=== PATIENT | male | born 1950 | race Caucasian/White ===

== ENCOUNTER 2017-03-29 13:31 | Outpatient (CLI) | payer MEDICARE, OTHER ==
--- NOTE | 2017-03-29 17:06 | MRI Report ---
EXAM: MRI LUMBAR SPINE WITHOUT CONTRAST EXAM DATE: 03/29/2017 02:16 PM. CLINICAL HISTORY: Lumbar pain. Intermittent pain to left leg. Patient reports a herniated disk at L4- L5. COMPARISON: None. TECHNIQUE: Multiplanar, multisequence T1-weighted and fluid-sensitive sequences of the lumbar spine f rom T12 to S1 without contrast. Other: None. FINDINGS: Spinal Cord: The conus terminates at approximately L1. The conus medullaris and cauda equina are not well evaluated secondary to lack of CSF signal throughout the majority of the lumbar spinal canal. Alignment: Lumbar curvature convex right. 2 mm posterior subluxation L1 on L2. 3-4 mm posterior sublu xation L2 on L3. 2 mm posterior subluxation L4 on L5. Bone Marrow: Diskogenic endplate edema most pronounced on the left at L3-L4. Less pronounced at the T 12-L1 level. Fatty endplate changes most pronounced at L2-L3 and L5-S1. No acute fracture identified. Disk Levels/Facets: There is a combination of short pedicles throughout the lumbar spine, as well as prominence of epidur al fat. These factors result in severe canal stenosis from the L1-L2 level through L4-L5. Essentially no CSF signal within the lumbar spinal canal between L1-L2 and L4-L5. T12-L1: Severe disk height loss. Annular disk bulge and degenerative facet arthropathy. Moderate cent ral canal stenosis. Mild left and moderate right foraminal stenosis. L1-L2: Retrolisthesis. Annular disk bulge and moderate degenerative facet arthropathy, as well as pro minence of posterior epidural fat. Severe central canal stenosis and mild bilateral foraminal stenosi s. L2-L3: Severe disk height loss. Retrolisthesis. Severe left and mild right degenerative facet arthrop athy. These changes in combination with prominent posterior epidural fat result in severe central can al stenosis, severe left foraminal stenosis, and mild right foraminal stenosis. L3-L4: Annular disk bulge and severe degenerative facet arthropathy with ligamentum flavum buckling. These changes result in severe central canal stenosis regardless of epidural fat at this level. Sever e left and moderate right foraminal stenosis. L4-L5: Disk height loss. Annular disk bulge with broad-based central disk protrusion and moderate deg enerative facet arthropathy with ligamentum flavum buckling. These changes in combination with promin ent epidural fat result in severe central canal stenosis. Mild left greater than right foraminal sten osis. L5-S1: Disk height loss. Annular disk bulge with broad-based central protrusion. Severe right and mod erate left degenerative facet arthropathy. Mild central canal stenosis. Moderate bilateral foraminal stenosis. Musculature: Unremarkable. Other: The partially visualized retroperitoneum is unremarkable. IMPRESSION: 1. Severe multilevel lumbar degenerative disk and facet arthropathy. 2. Multilevel mild degenerative subluxations. 3. Combination of short lumbar pedicles and prominent epidural fat contribute to severe central canal stenosis with lack of CSF signal from L1-L2 through L4-L5. 4. Severe central canal stenosis at the L3-L4 level is on the basis of disk and facet arthropathy reg ardless of the epidural fat component. 5. Multilevel foraminal stenosis, severe on the left at the L2-L3 and L3-L4 levels. Comment: The following findings are so common in adults without low back pain that while we report th eir presence, they must be interpreted with caution and in the context of the clinical situation. (Re darcy Gardner et al, Spine 2001) Prevalence of findings in patients without low back pain: Disk degeneration (any evidence): 92% Disk desiccation/T2 signal loss: 83% Disk height loss: 56% Disk bulge: 64% Disk protrusion: 32% Annular tear/high intensity zone: 38% [facility] Referring Provider Line: [phone] SITE ID: [id number]
== END 2017-03-29 13:32 | disposition home or self-care (01) ==
LOC: DI 13:31
PROVIDERS: ATTEND Family Medicine
DX: M47.896 Other spondylosis, lumbar region (principal); M51.36 Other intervertebral disc degeneration, lumbar region; M51.26 Other intervertebral disc displacement, lumbar region; M51.27 Other intervertebral disc displacement, lumbosacral region; M43.16 Spondylolisthesis, lumbar region
CPT/HCPCS: 72148

== ENCOUNTER 2018-11-16 15:35 | Outpatient (CLI) | payer MEDICARE, OTHER ==
--- NOTE | 2018-11-19 09:01 | Ultrasound Report ---
Reason: PERIPHERAL VASCULAR DISEASE, UNSPECIFIED Procedure Date: 11/16/2018 Accession Number: [id number] / [id number] Procedure: US - Duplex Lwr Ext Arterial Bilat CPT Code: FULL RESULT: EXAM: Bilateral Lower Extremity Arterial Doppler Ultrasound EXAM DATE: 11/16/2018 04:46 PM. CLINICAL HISTORY: Peripheral vascular disease, unspecified. COMPARISON: None. TECHNIQUE: Real-time sonographic vascular imaging was performed by the grip boss, utilizing color-flow, Doppler flow, and spectral analysis. Multiple payable representative static images were saved for review. FINDINGS: Mild to moderate diffuse bilateral plaque visualized. Approximately 3 cm occluded segment at the distal right SFA. Collateral vessel noted. Monophasic flow through most of the left lower extremity. Correlate for inflow disease at the iliac level. Right Lower Extremity: POND SAWYER: PSV 117 cm/sec, biphasic waveform PSFA: PSV 80 cm/sec, triphasic waveform MSFA: PSV 58 cm/sec, monophasic waveform DSFA: PSV 39 cm/sec, monophasic waveform PFA: PSV 147 cm/sec, biphasic waveform POP: PSV 49 cm/sec, monophasic waveform DENISE: PSV 30 cm/sec, monophasic waveform MANAGER KNOWLEDGE: PSV 45 cm/sec, monophasic waveform SEBASTIAN: PSV 18 cm/sec, monophasic waveform DPA: PSV 10 cm/sec, monophasic waveform Left Lower Extremity: POND SAWYER: PSV 132 cm/sec, monophasic waveform PSFA: PSV 61 cm/sec, monophasic waveform MSFA: PSV 83 cm/sec, monophasic waveform DSFA: PSV 50 cm/sec, monophasic waveform PFA: PSV 45 cm/sec, biphasic waveform POP: PSV 45 cm/sec, monophasic waveform DENISE: PSV 22 cm/sec, monophasic waveform MANAGER KNOWLEDGE: PSV 39 cm/sec, monophasic waveform SEBASTIAN: PSV 33 cm/sec, monophasic waveform DPA: PSV 6 cm/sec, monophasic waveform IMPRESSION: Mild to moderate diffuse bilateral plaque visualized. Approximately 3 cm occluded segment at the distal right SFA. Collateral vessel noted. Monophasic flow through most of the left lower extremity. Correlate for inflow disease at the iliac level. [facility]
--- NOTE | 2018-11-20 06:27 | MRI Report ---
Reason: r/o tendon rupture Procedure Date: 11/16/2018 Accession Number: [id number] / [id number] Procedure: MRI - Finger(s) RT W/O CPT Code: 96131 FULL RESULT: EXAM: RIGHT HAND THIRD DIGIT MR WITHOUT CONTRAST EXAM DATE: 11/16/2018 05:57 PM. CLINICAL HISTORY: R/o tendon rupture. COMPARISON: None. TECHNIQUE: Multiplanar, multisequence T1-weighted and fluid-sensitive sequences of the finger without contrast. Other: None. FINDINGS: Bones: No fractures or subluxations. No marrow edema. No bone lesions. Cartilage: The articular cartilage is unremarkable. Ligaments: The radial and ulnar collateral ligaments are intact. Tendons: The central slip of the extensor digitorum communis tendon appears to be intact and insert normally at the base of the middle phalanx. There is soft tissue edema at the dorsal aspect of the distal interphalangeal joint, with non-visualization of the conjoined tendons and terminal tendon at the insertion on the dorsal base of the distal phalanx. The flexor tendon is normal. The flexor pulleys are intact. Musculature: No edema or fatty atrophy. Other: No joint effusions or capsular rupture. The subcutaneous tissues are unremarkable. IMPRESSION: 1. Rupture of the conjoined tendon components and terminal tendon of the extensor digitorum communis at the level of the insertion on the distal phalanx, with surrounding soft tissue edema. The central slip and lateral bands of the extensor digitorum communis are intact. [facility]
== END 2018-11-16 15:36 | disposition home or self-care (01) ==
LOC: DI 15:35
PROVIDERS: ATTEND Family Medicine
DX: S66.312A Strain of extensor muscle, fascia and tendon of right middle finger at wrist and hand level, initial encounter (principal); I73.9 Peripheral vascular disease, unspecified; I77.1 Stricture of artery
CPT/HCPCS: 93925

== ENCOUNTER 2020-03-04 15:21 | Outpatient (CLI) | payer MEDICARE, OTHER ==
--- NOTE | 2020-03-04 16:52 | MRI Report ---
PROCEDURE: Lumbar Spine W/O INDICATIONS: LOW BACK PAIN TECHNIQUE: Noncontrast sagittal T1 spin echo and T2 fast echo, sagittal STIR, axial T1 and T2 fast spin echo thr ough the lumbar spine. In cases with scoliosis, additional coronal T2 fast spin echo may be performe d. COMPARISON: 03/29/2017 FINDINGS: Image quality: Diagnostic, with note made of motion artifact. Alignment and Curvature: There is moderate dextroconvex lumbar scoliosis. There is mild retrolisthes is seen at L1-L2 and L2-L3, with minimal retrolisthesis seen at L4-L5. Bone Marrow: Marrow is of normal overall signal. Scattered foci of T1-weighted hyperintensity and T2-weighted hyperintensity are seen, without increased STIR signal. These foci are attributed to gil gn vertebral body hemangiomas. No acute vertebral body compression fractures. Spinal Cord: Conus medullaris terminates at the L1 level. Visualized cord demonstrates normal signa l and size. Paraspinous Soft Tissues: No paravertebral masses. T10-T11: Moderate to severe loss of disc height is seen. Reactive marrow endplate changes are seen, w hich demonstrate mixed signal and are attributed to a combination of edema and fatty metaplasia (Anita c type I and Modic type II changes). At least moderate disc bulge is seen, which is eccentric to the right. Moderate to severe central canal narrowing is seen. Moderate to severe bilateral neuroforamin al narrowing can be seen. T11-T12: Moderate loss of disc height and signal are seen. Moderate disc bulge is seen, which is ec centric to the right. Mild facet hypertrophy is seen. There is moderate right-sided and minimal lef t-sided neuroforaminal narrowing seen. Mild central canal narrowing is seen. T12-L1: Moderate loss of disc height and signal are seen. Moderate disc bulge is seen, which is ecce ntric to the right. Mild to moderate facet hypertrophy is seen. There is at least moderate left-sided and moderate to severe right-sided neuroforaminal narrowing seen. Compression is seen upon the exiti ng nerve roots. At least moderate central canal narrowing is seen. L1-L2: Moderate loss of disc height and signal are seen. Moderate disc bulge is seen, which is e ccentric to the right. At least moderate facet hypertrophy is seen. There is moderate to severe bilat eral neural narrowing seen, left worse than right. Compression is seen upon the exiting nerve roots. Moderate to severe central canal narrowing is seen, as on series 701 image 32. L2-L3: Moderate to severe loss of disc height and disc signal can be seen. Reactive marrow endpla te changes are seen, which are hyperintense on T1-weighted and T2-weighted imaging, without significa nt increased STIR signal. These imaging findings are most consistent with fatty metaplasia (Modic typ e 2 change). Moderate to prominent disc bulge is seen, with a central disc protrusion. There is mode rate right-sided and moderate to severe left-sided facet hypertrophy seen. There is at least moderate right-sided and moderate to severe left-sided neuroforaminal narrowing seen. Compression is seen upo n the exiting nerve roots. Moderate to severe central canal narrowing is seen, as on series 7 and on image 25. L3-L4: Moderate loss of disc height and signal are seen. Reactive marrow endplate changes are seen, which demonstrate mixed signal and are attributed to a combination of edema and fatty metaplasia (Mo dic type I and Modic type II changes). At least moderate disc bulge is seen, which is eccentric to the left. There is a central disc extrusion seen. Moderate to prominent facet hypertrophy is seen, wh ich is more prominent on the left side than on the right. Moderate to severe bilateral neuroforaminal narrowing is seen, left worse than right. Compression is seen upon the exiting nerve roots. There is severe central canal narrowing, as on series 701 image 20. L4-L5: Moderate loss of disc height and signal are seen. Moderate disc bulge is seen, with a centra l disc extrusion. Moderate to prominent facet hypertrophy is seen, right worse than left. There is mo derate to severe bilateral neuroforaminal narrowing seen, left worse than right. Compression is seen upon the exiting nerve roots. Moderate to severe central canal narrowing is seen, as on series 7 an d one image 13. L5-S1: Mild to moderate loss of disc height and disc signal can be seen. Moderate disc bulge is see n, with a central disc protrusion. There is moderate to prominent right-sided and moderate left-sided facet hypertrophy seen. There is moderate to severe bilateral neuroforaminal narrowing seen, right w orse than left. Compression is seen upon the exiting nerve roots. At least moderate central canal n arrowing is seen. IMPRESSION: Multiple levels of prominent lumbar spine degenerative change are seen, which are overal l worst at L3-L4 and L4-L5. Reviewed by: Jaspal Eason MD on 03/04/2020 3:51 PM [facility] Approved by: Jaspal Eason MD on 03/04/2020 3:51 PM [facility] Station ID: [id number]
== END 2020-03-04 15:22 | disposition home or self-care (01) ==
LOC: DI 15:21
PROVIDERS: ATTEND Student in an Organized Health Care Education/Training Program
DX: M51.26 Other intervertebral disc displacement, lumbar region (principal); M47.816 Spondylosis without myelopathy or radiculopathy, lumbar region
CPT/HCPCS: 72148

== ENCOUNTER 2024-09-11 12:59 | Inpatient (IN) ==
--- NOTE | 2024-09-11 13:13 | ED Physician Documentation ---
PD HPI NVD Stated complaint Stated Complaint: VOMITING Chief complaint Chief Complaint: Abd Pain History obtained from History obtained from: Patient History of Present Illness Timing - onset: How many days ago (3) Timing - details: Abrupt onset, Still present and Waxing and waning (Abdominal bloating and cramping vomiting that relieves for an hour or 2 and then repeated over the last 2-1/2 days.) Associated symptoms: Abdominal pain and Loss of appetite; No Fever, Hematemesis or Near syncope / syncope Contributing factors: No Sick contact Improved by: Vomiting Worsened by: Eating Similar symptoms before: Has not had sx before Meds/Allgy Home Medications Ambulatory Orders Medication Instructions Recorded Confirmed aspirin 81 mg tablet,delayed 81 mg ORAL DAILY 11/14/13 09/11/24 release (Aspir-) losartan 50 mg tablet 100 mg ORAL DAILY 11/14/13 0 09/11/24 amlodipine 10 mg tablet 10 mg PO DAILY 09/11/24 05/ 0 atorvastatin 80 mg tablet (Lipitor) 80 mg PO DAILY 09/11/24 chlorthalidone 50 mg tablet 50 mg PO DAILY 09/11/24 cholecalciferol (vitamin D3) 50 2,000 unit PO DAILY 09/11/24 mcg (2,000 unit) capsule (Vitamin D3) glucosamine sulfate 500 mg tablet 2,000 mg PO DAILY 09/11/24 (Glucosamine) metformin 500 mg tablet,extended 500 mg PO DAILY 09/1109/11/24 release 24 hr (Glucophage XR) Allergies Allergies Allergy/AdvReac Type Severity Reaction Status Date / Time No Known Drug Allergies Allergy Unverified 09/11/24 12:55 PFSH Active Problems All Active Problems (Updated 09/11/24 @ 15:08 by Boni Newby MD) RUPA (acute kidney injury) (Acute) Acute dehydration (Acute) Vomiting (Acute) SBO (small bowel obstruction) (Acute) Social History Social History If you are a former smoker, when did you quit? (Date/Year): 2005 How many cigarettes a day do you smoke? (20 cigarettes=1 Pk): 30 Relationship: Exam Exam Vital Signs: Vital Signs x48h Temp Pulse Resp BP Pulse Ox O2 Flow Rate 09/11/24 14:15 93 20 101/66 97 09/11/24 14:00 90 20 125/67 98 2 09/11/24 13:45 87 20 125/67 97 2 09/11/24 13:28 88 20 103/62 96 2 09/11/24 13:15 98 20 70/50 L 93 2 09/11/24 13:00 101 H 20 78/50 L 88 L 09/11/24 12:53 36.0 C L 100 18 92/58 L 95 Initially hypotensive on presentation which improved with IV fluids. Constitutional normal general appearance, distress noted (mild) and average body habitus HENMT oral mucous membranes abnormal (dry) Lymph no lymphadenopathy noted Respiratory breath sounds equal bilaterally and normal respiratory effort Cardiovascular normal heart rate noted and regular rhythm noted Gastrointestinal tender to palpation (moderate), (epigastric) and (RUQ), tender to percussion (moderately distended. ), abnormal bowel sounds noted (hyperactive bowel sounds) and no hernia Genitourinary no CVA tenderness Extremities no tenderness and full ROM Psychiatry mental status grossly normal Skin skin color normal Results Vitals Vitals: Vital Signs - 24 hr 09/11/24 12:53 09/11/24 12:55 09/11/24 13:00 Temperature 36.0 C L Temperature Source Temporal Artery Scan Pulse Rate 100 101 H Respiratory Rate 18 20 Blood Pressure 92/58 L 78/50 L O2 Saturation 95 88 L O2 Source Room air Room air If not protocol: Oxygen Flow, liters/minute Pain Intensity 4 4 09/11/24 13:15 09/11/24 13:28 09/11/24 13:45 Temperature Temperature Source Pulse Rate 98 88 87 Respiratory Rate 20 20 20 Blood Pressure 70/50 L 103/62 125/67 O2 Saturation 93 96 97 O2 Source Nasal cannula Nasal cannula Nasal cannula If not protocol: Oxygen Flow, liters/minute 2 2 2 Pain Intensity 09/11/24 14:00 09/11/24 14:15 Temperature Temperature Source Pulse Rate 90 93 Respiratory Rate 20 20 Blood Pressure 125/67 101/66 O2 Saturation 98 97 O2 Source Nasal cannula If not protocol: Oxygen Flow, liters/minute 2 Pain Intensity Oxygen O2 Source Nasal cannula Labs Labs: Laboratory Tests 09/11/24 09/11/24 13:20 14:17 WBC 11.5 H RBC 4.74 Hgb 14.3 Hct 42.5 MCV 89.7 MCH 30.2 MCHC 33.6 RDW 14.3 Plt Count 277 MPV 10.2 Neut # (Auto) 9.4 H Lymph # (Auto) 1.0 L [place] # (Auto) 1.0 Eos # (Auto) 0.0 Baso # (Auto) 0.0 Absolute Nucleated RBC 0.00 Nucleated RBC % 0.0 Sodium 136 Potassium 3.4 L Chloride 96 L Carbon Dioxide 24 Anion Gap 16.0 H BUN 52 H Creatinine 2.8 H Estimated GFR (MDRD) 22 L Glucose 151 H Calcium 9.2 Magnesium 1.9 Total Bilirubin 1.0 AST 19 ALT 15 Alkaline Phosphatase 55 Total Protein 7.7 Albumin 4.4 Globulin 3.3 Albumin/Globulin Ratio 1.3 Lipase 23 Urine Color DARK YELLOW Urine Clarity CLEAR Urine pH 5.5 Ur Specific [place] >=1.030 H Urine Protein 30 H Urine Glucose (UA) NEGATIVE Urine Ketones TRACE Urine Occult Blood NEGATIVE Urine Nitrite NEGATIVE Urine Bilirubin SMALL H Urine Urobilinogen 0.2 (NORMAL) Ur Leukocyte Esterase NEGATIVE Urine RBC 0-5 Urine WBC 4-5 Ur Squamous Epith Cells RARE Squamous Urine Bacteria Few Urine Casts 11-25 Hyaline Casts Ur Microscopic Review INDICATED Urine Culture Comments NOT INDICATED Rads (name of study) abd/pelvic CT: Relevant Findings:: Final report received and EMP independent interpretation of test (apparent SBO) Interpretation: FINDINGS: Image quality: Diagnostic Lower chest: Mild right lung base opacities and reticular changes. No pleural effusions. Background emphysema of the parenchyma. Normal heart size. Coronary calcifications. Liver: No contour deforming mass. Solid organs are not well assessed without IV contrast. Moderate hepatic steatosis Gallbladder and biliary system: Unremarkable, nondilated Pancreas: No ductal dilation Background parenchymal atrophy Spleen: Nonenlarged Adrenals: No discrete nodules Kidneys: No contour deforming solid mass There are scattered cysts. No hydronephrosis or obstructing calculus by stone. Vessels and lymph nodes: Borderline abdominal aortic aneurysm at 3 cm. Areas of irregular luminal plaque are present, not well assessed however on this noncontrast study. No pathologic lymphadenopathy by size criteria. Bowel and peritoneum: No drainable abscess or ascites. Bowel obstruction, with moderate distention of the proximal loops measuring up to 3.9 cm. Nondilated appendix. The right lower quadrant distal ileal loops are underdistended. Transition points in the lower midline abdomen. Colonic diverticulosis. No acute inflammation is seen. Body wall: Unremarkable Pelvis: Bladder is unremarkable. Prostate is unremarkable limited CT evaluation Bones: No aggressive appearing osseous abnormality. Advanced lumbosacral degenerative changes are present. Sacroiliac ankylosis. Diffuse sclerotic lesions of the vertebral bodies favored to represent Modic changes. IMPRESSION: Small bowel obstruction, with transition point in the lower midline abdomen. Colonic diverticula, no definite acute inflammation. Right lung base mild opacities, possibly infectious or inflammatory. Mild reticular changes might represent background fibrosis. There is also emphysema. Other findings above. Reviewed by: Efrem Martínez MD on 09/11/2024 2:43 PM PDT PD Medical Decision Making ED course Complexity details: reviewed results, considered differential and d/w patient ED course: The patient started on Tuesday which was 2 days ago with a intermittent abdominal bloating and cramping with nausea and vomiting. He will feel improved after vomiting for an hour or 2 and then developed the cramping and vomiting again. This has been repetitive over the last 2 and half days. Feeling generally weak and lightheaded now. No diarrhea or bloody stools. He denies hematemesis. No history of prior similar. He has not had any previous abdominal surgeries. His main cramps and pain are more upper abdomen. He has not had any upper respiratory symptoms. He denies any recent unusual foods or travel. Again no prior surgeries. The patient does have hyperactive bowel sounds with some moderate distention particularly in the upper abdomen. There is some tenderness in the upper abdomen more to the right. Consideration could be for pancreatic or gallbladder. However the pattern of it sounds more likely bowel obstruction. This would be less common without prior belly surgeries so would raise concerns for tumors or such as well. We will get a CT scan to best evaluate. His labs came back showing slightly elevated white count. Otherwise his creatinine is at 2.8 I presume that is not chronic for him as he is not aware of any kidney dysfunction. We do not have prior labs on him here. We did do the CT without contrast therefore and presume an acute process. Given IV fluids, Zofran and famotidine presuming some element of gastritis after 3 days of vomiting. Creatinine will get rechecked after few hours with some fluids. Did talk with Dr. Estrada who is on for surgery who asked that a nasogastric tube be placed. Given his age and acute presumption of renal insufficiency, asked that the patient go to the medicine service as well. I talked with the hospitalist who was in agreement and will come and see the patient. At this point the patient appears comfortable and is not having any abdominal pain at this time. His blood pressure had initially been low but has improved with IV fluids. Current blood pressure is now 101/66 with a pulse of 93. I did update the patient on the findings of his CT scan and labs and the expected course of hospitalization with nasogastric tube and surgical consultation. Discharge Plan Discharge Patient Disposition: ED Place in Observation Condition: Stable Clinical Impression: SBO (small bowel obstruction), Vomiting, Acute dehydration, RUPA (acute kidney injury) Prescriptions: No Action losartan 50 MG tablet 100 mg ORAL DAILY aspirin [Aspir-81] 81 MG tablet,delayed release (DR/EC) 81 mg ORAL DAILY glucosamine sulfate [Glucosamine] 500 mg tablet 2,000 mg PO DAILY Rx Instructions: administer with a meal cholecalciferol (vitamin D3) [Vitamin D3] 50 mcg (2,000 unit) capsule 2,000 unit PO DAILY atorvastatin [Lipitor] 80 mg tablet 80 mg PO DAILY metformin [Glucophage XR] 500 mg tablet extended release 24 hr 500 mg PO DAILY chlorthalidone 50 mg tablet 50 mg PO DAILY amlodipine 10 mg tablet 10 mg PO DAILY Print Language: Citizen [place] Stand Alone Forms: PCP List
[2024-09-11] MEDS: SODIUM CHLORIDE 0.9% 1,000 ML IV STA ×2 (13:16→13:33)
[2024-09-11] MEDS: FAMOTIDINE 20 MG/2 ML VIAL IVP STA (13:18)
[2024-09-11] MEDS: ONDANSETRON 4 MG/2 ML VIAL IVP STA (13:18)
[2024-09-11 13:25] LABS: BASOPHILS % (AUTO) 0.3 %; EOSINOPHILS % (AUTO) 0.3 %; HCT - HEMATOCRIT 42.5 % (42.0-52.0); HGB - HEMOGLOBIN 14.3 g/dL (14.0-18.0); LYMPHOCYTES % (AUTO) 8.7 %; MEAN CORPUSCULAR HEMOGLOBIN 30.2 pg (27.0-31.0); MEAN CORPUSCULAR HGB CONC 33.6 g/dL (32.0-36.0); MEAN CORPUSCULAR VOLUME 89.7 fL (80.0-94.0); MEAN PLATELET VOLUME 10.2 fL (7.4-11.4); NEUTROPHILS # (AUTO) 9.4 10^3/uL (1.5-6.6); NEUTROPHILS % (AUTO) 81.4 %; PLT - PLATELET COUNT 277 10^3/uL (130-450); RED BLOOD COUNT 4.74 10^6/uL (4.70-6.10); RED CELL DISTRIBUTION WIDTH 14.3 % (12.0-15.0); WHITE BLOOD COUNT 11.5 x10^3/uL (4.8-10.8)
[2024-09-11 13:43] LABS: MAGNESIUM 1.9 mg/dL (1.7-2.3)
[2024-09-11 13:51] LABS: ALBUMIN 4.4 g/dL (3.2-5.5); ALBUMIN/GLOBULIN RATIO 1.3 (1.0-2.2); CALCIUM 9.2 mg/dL (8.5-10.3); CREATININE 2.8 mg/dL (0.6-1.3); POTASSIUM 3.4 mmol/L (3.5-4.5); TOTAL PROTEIN 7.7 g/dL (6.4-8.9)
[2024-09-11] MEDS ORDERED: iohexoL-300 100 ML VIAL ONE (14:08)
[2024-09-11 14:24] LABS: BILIRUBIN,URINE SMALL (NEGATIVE); GLUCOSE, URINE (UA) NEGATIVE (NEGATIVE); KETONES,URINE (UA) TRACE mg/dL (NEGATIVE); LEUKOCYTE ESTERASE, URINE NEGATIVE (NEGATIVE); NITRITE,URINE NEGATIVE (NEGATIVE); OCCULT BLOOD,URINE NEGATIVE (NEGATIVE); PH,URINE 5.5 PH (5.0-7.5); PROTEIN,URINE 30 mg/dL (NEGATIVE); UROBILINOGEN,URINE 0.2 (NORMAL) E.U./dL (NORMAL)
[2024-09-11 14:29] LABS: CLARITY,URINE CLEAR (CLEAR)
[2024-09-11 14:32] LABS: BACTERIA,URINE Few /HPF (None Seen); RBC,URINE 0-5 /HPF (0-5); SQUAMOUS EPITHELIAL CELL,UR RARE Squamous (<= Few)
[2024-09-11 14:33] LABS: CASTS, URINE 11-25 Hyaline Casts /LPF
--- NOTE | 2024-09-11 14:44 | CT Report ---
PROCEDURE: CT Abdomen/Pelvis WO INDICATIONS: vomiting 3 days and RUQ abd tender. TECHNIQUE: A CT scan of the abdomen and pelvis was performed without the use of intravenous contrast. Images were recorded and evaluated at appropriate window settings. Reformats: coronal and sagittal. For radiation dose reduction, the following was used: automated exposure control, adjustment of mA and/or kV according to patient size. COMPARISON: None FINDINGS: Image quality: Diagnostic Lower chest: Mild right lung base opacities and reticular changes. No pleural effusions. Background emphysema of the parenchyma. Normal heart size. Coronary calcifications. Liver: No contour deforming mass. Solid organs are not well assessed without IV contrast. Moderate hepatic steatosis Gallbladder and biliary system: Unremarkable, nondilated Pancreas: No ductal dilation Background parenchymal atrophy Spleen: Nonenlarged Adrenals: No discrete nodules Kidneys: No contour deforming solid mass There are scattered cysts. No hydronephrosis or obstructing calculus by stone. Vessels and lymph nodes: Borderline abdominal aortic aneurysm at 3 cm. Areas of irregular luminal plaque are present, not well assessed however on this noncontrast study. No pathologic lymphadenopathy by size criteria. Bowel and peritoneum: No drainable abscess or ascites. Bowel obstruction, with moderate distention of the proximal loops measuring up to 3.9 cm. Nondilated appendix. The right lower quadrant distal ileal loops are underdistended. Transition points in the lower midline abdomen. Colonic diverticulosis. No acute inflammation is seen. Body wall: Unremarkable Pelvis: Bladder is unremarkable. Prostate is unremarkable limited CT evaluation Bones: No aggressive appearing osseous abnormality. Advanced lumbosacral degenerative changes are present. Sacroiliac ankylosis. Diffuse sclerotic lesions of the vertebral bodies favored to represent Modic changes. IMPRESSION: Small bowel obstruction, with transition point in the lower midline abdomen. Colonic diverticula, no definite acute inflammation. Right lung base mild opacities, possibly infectious or inflammatory. Mild reticular changes might represent background fibrosis. There is also emphysema. Other findings above. Reviewed by: Efrem Martínez MD on 09/11/2024 2:43 PM PDT Approved by: Efrem Martínez MD on 09/11/2024 2:43 PM PDT Station ID: [id number]
--- NOTE | 2024-09-11 15:13 | HISTORY & PHYSICAL EXAMINATION ---
Chief Complaint Chief Complaint Chief Complaint: Abdominal pain History of Present Illness Admitted From Admitted From:: Home History Obtained From Records Reviewed: EMR History obtained from: Patient Exam Limitations: None History of Present Illness HPI Comment/Other: Patient is a 74-year-old male with history of prediabetes, hypertension who presents with worsening abdominal pain, nausea, vomiting. Patient states that on Tuesday, he noticed some abdominal pain. He did feel gas buildup in his stomach, noticed some stomach distention, and then have repeated episodes of emesis. He describes the emesis as his recently digested food. No blood or bile was noted. This continued until today, when he decided to come in. He does not recall his last bowel movement. He is not passing gas at this time. He states his last colonoscopy was maybe 2 to 3 years ago, and he was told that it was normal. He has not had any abdominal surgeries. He is not on any opioid medications. Nor has he had any changes to his medications. In the ED, he was slightly hypotensive with blood pressure of 70/50, which improved with IV fluids. His oxygen saturation was 88% on room air. His respiratory rate was 20. His heart rate was 101. And he was afebrile at 96.8. Lab work was reviewedhe had a slightly elevated white blood cell count of 11.5. His potassium was mildly low at 3.4. His creatinine was elevated 2.8, there is no baseline in our system. His UA showed some protein. CT abdomen/pelvis was completedand it did show small bowel obstruction with transition point in lower midline abdomen. Colonic diverticula. Also showed right lung base mild opacities, some emphysema. He was admitted for small bowel obstruction. Emergency room did speak with general surgery as well, they are aware of the admission. Meds/Allgy Home Medications Ambulatory Orders Medication Instructions Recorded Confirmed aspirin 81 mg tablet,delayed 81 mg ORAL DAILY 11/14/13 09/11/24 release (Aspir-) amlodipine 10 mg tablet 10 mg PO DAILY 09/11/2408/24 0 atorvastatin 80 mg tablet (Lipitor) 80 mg PO DAILY 09/11/24 celecoxib 100 mg capsule mg 09/11/24 cetirizine 10 mg tablet mg 09/11/24 chlorthalidone 50 mg tablet 50 mg PO DAILY 09/11/24 cholecalciferol (vitamin D3) 50 2,000 unit PO DAILY 09/11/24 mcg (2,000 unit) capsule (Vitamin D3) glucosamine sulfate 500 mg tablet 2,000 mg PO DAILY 09/11/24 (Glucosamine) losartan 100 mg tablet mg 09/11/24 metformin 500 mg tablet,extended 500 mg PO DAILY 09/1109/11/24 release 24 hr (Glucophage XR) timolol maleate 0.5 % eye gel 09/11/24 forming solution Allergies Allergies Allergy/AdvReac Type Severity Reaction Status Date / Time No Known Drug Allergies Allergy Unverified 09/11/24 12:55 PFSH Active Problems All Active Problems (Updated 09/11/24 @ 15:56 by Kodak Baugh MD) Hypertension (Acute) Prediabetes (Acute) RUPA (acute kidney injury) (Acute) Acute dehydration (Acute) Vomiting (Acute) SBO (small bowel obstruction) (Acute) Social History Social History Smoking Status: Former smoker If you are a former smoker, when did you quit? (Date/Year): 2005 How many cigarettes a day do you smoke? (20 cigarettes=1 Pk): 30 Relationship: POLST Patient has POLST: No POLST Status: DNR Review of Systems Constitutional Reports: Weakness and Poor appetite; Denies: Fatigue, Fever, Chills or Malaise Eyes Denies: Pain, Irritation, Blurry vision, Vision loss, Diplopia or Eye discomfort Ears, nose, mouth, and throat Denies: Ear pain, Hearing loss, Tinnitus, Nose bleeds, Nasal discharge, Mouth lesions, Bleeding gums or Neck pain Cardiovascular Denies: Irregular heart rate, chest pain, palpitations, edema, Syncope or shortness of breath with exertion Respiratory Denies: Shortness of breath, Cough, Sputum production or Wheezing Gastrointestinal Reports: Abdominal pain, Nausea, Vomiting, Bloating and Belching; Denies: Abdominal distention, Heartburn, Diarrhea or Constipation Genitourinary Denies: Painful urination, Urinary frequency or Urinary urgency Musculoskeletal Denies: Back pain, Neck pain, Extremity pain, Extremity swelling or Joint pain Integumentary/Breast Denies: Rash, Itching, Dryness, Redness or Skin pain Neurological Denies: Headache, General weakness, Weakness in extremities, Numbness in extremities, Abnormal gait or Dizziness Psychiatric Denies: Depression, Anxiety, Mood swings or Panic attacks Endocrine Denies: Excessive urination, Excessive thirst or Fatigue Hematologic/Lymphatic Denies: Anemia, Easy bruising or Easy bleeding Allergic/Immunologic Denies: Hives, Tongue swelling, Facial swelling or Wheezing Exam Exam Vital Signs: Vital Signs x48h Temp Pulse Resp BP Pulse Ox O2 Flow Rate 09/11/24 14:15 93 20 101/66 97 09/11/24 14:00 90 20 125/67 98 2 09/11/24 13:45 87 20 125/67 97 2 09/11/24 13:28 88 20 103/62 96 2 09/11/24 13:15 98 20 70/50 L 93 2 09/11/24 13:00 101 H 20 78/50 L 88 L 09/11/24 12:53 96.8 F L 100 18 92/58 L 95 Constitutional normal general appearance, no apparent distress and abnormal body habitus (obese) HENMT normocephalic and head/scalp atraumatic Eyes EOMs intact bilaterally Neck/C-Spine visual inspection normal and trachea midline Chest inspection of chest normal Respiratory breath sounds equal bilaterally, normal respiratory effort, clear to auscultation bilaterally, no wheezes, no rales and no retractions Cardiovascular normal heart rate noted, regular rhythm noted, no gallop, no rub and no murmur Gastrointestinal abdomen soft to palpation, tender to palpation (mild) and (epigastric), distended (distended) and abnormal bowel sounds noted (hypoactive bowel sounds) Genitourinary no CVA tenderness and bladder normal to palpation Back/Pelvis spine normal to inspection and no thoracic spine tenderness Extremities normal to inspection, normal to palpation and no tenderness Neurology no movement abnormality noted and no focal motor deficit noted Psychiatry mental status grossly normal, oriented x3, thought process normal, cooperative and affect normal Skin skin color normal and no rash Conclusion/Plan Problem List (1) SBO (small bowel obstruction): Plan: Patient presents with 3 days of intractable nausea, vomiting, abdominal pain. CT abdomen/pelvis shows small bowel obstruction. Continue LR at 125 cc/h. Continue Zofran as needed, pain control. General Surgery consulted: Recommend NG tube placement. Appreciate further recommendations. (2) Acute dehydration: Plan: Continue IV fluids. Hypokalemia also noted likely due to GI losses. Continue replacement. (3) RUPA (acute kidney injury): Plan: Likely prerenal due to GI losses in setting of above. Continue IV fluid resuscitation. (4) Prediabetes: Plan: Hold metformin at this time. (5) Hypertension: Plan: Blood pressures are currently soft. Continue to hold antihypertensives at this time. Qualifiers: Hypertension type: unspecified Qualified Code(s): I10 - Essential (primary) hypertension Lab Results Lab results reviewed: Yes 09/11/24 13:20 09/11/24 13:20 Diagnostic Imaging Results Diagnostic Imaging Results: positive Final report reviewed Core Measures Anticipated LOS I expect patient to be DC'd or transferred within 96 hours.: Yes DVT/VTE - Prophylaxis VTE/DVT Device ordered at admit?: Yes VTE/DVT Prophylaxis med ordered at admit?: Yes Stroke - Rehab Assessment Rehab services assessment to be ordered?: Yes
--- OUTSIDE RECORDS SUMMARY | 2024-09-11 15:55 | EXTERNAL MEDICAL SUMMARY RPT | Continuity of Care Document ---
Author Organization [facility] Address [address] [address] Phone Results/Labs test date facility value unit notes Result panel 1 NUCLEATED RED BLOOD CELLS AUTO 2024-09-11 13:20 [facility] 0.0 /100wbc (missing) BASOPHILS # (AUTO) 2024-09-11 13:20 [facility] 0.0 10 3/ul (missing) EOSINOPHILS # (AUTO) 2024-09-11 13:20 [facility] 0.0 10 3/ul (missing) NRBC ABSOLUTE COUNT (AUTO) 2024-09-11 13:20 [facility] 0.00 x10 3/ul (missing) MONOCYTES # (AUTO) 2024-09-11 13:20 [facility] 1.0 10 3/ul (missing) LYMPHOCYTES # (AUTO) 2024-09-11 13:20 [facility] 1.0 10 3/ul (missing) BILIRUBIN,TOTAL 2024-09-11 13:20 [facility] 1.0 mg /dl As of October 2022 testing method has changed, this may include reference ranges. ALBUMIN/GLOBULIN RATIO 2024-09-11 13:20 [facility] 1.3 (missing) (missing) MAGNESIUM 2024-09-11 13:20 [facility] 1.9 mg/dl As of October 2022 testing method has changed, this may include reference ranges. MEAN PLATELET VOLUME 2024-09-11 13:20 [facility] 10.2 fl (missing) WHITE BLOOD COUNT 2024-09-11 13:20 [facility] 11.5 x10 3/ul (missing) SODIUM 2024-09-11 13:20 [facility] 136 mmol/l (missing) RED CELL DISTRIBUTION WIDTH 2024-09-11 13:20 [facility] 14.3 % (missing) HGB - HEMOGLOBIN 2024-09-11 13:20 [facility] 14.3 g /dl (missing) ALT ALANINE AMINOTRANSFERASE [facility]24-09-11 [facility] As of October 2022 testing method has changed, this may include reference ranges. GLUCOSE 2024-09-11 [facility] 151 mg/dl As of October 2022 testing method has changed, this may include reference ranges. ANION GAP 2024-09-11 [email or web address] 16.0 (missing ) (missing) AST ASPARTATE AMINOTRANSFERASE 2024-09-11 13[facility] iu/l As of October 2022 testing method has changed, this may include reference ranges. CREATININE 2024-09-11 13[email or web address] 2.8 mg/dl As of October 2022 testing method has changed, this may include reference ranges. GFR - MDRD 2024-09-11 13[facility] (andressa gary) Social History date description facility
[2024-09-11] MEDS: LACTATED RINGERS 1,000 ML IV STA (16:07)
--- NOTE | 2024-09-11 16:45 | XRAY Report ---
PROCEDURE: XR No-Charge 1V Abdomen INDICATIONS: NGT placement TECHNIQUE: 1 view of the abdomen were acquired. COMPARISON: None. FINDINGS: Surgical changes and devices: The tip of an NG tube projects to the distal body of the stomach.. IMPRESSION: NG tube tip projects to distal body of the stomach. Reviewed by: Laith Craft MD on 09/11/2024 4:44 PM PDT Approved by: Laith Craft MD on 09/11/2024 4:44 PM PDT Station ID: [id number]
[2024-09-11] MEDS ORDERED: ONDANSETRON ODT 4 MG TABLET TL PRN (17:01)
[2024-09-11] MEDS ORDERED: SODIUM CHLORIDE FLUSH 0.9% 10 ML SYRINGE IVP PRN (17:01)
[2024-09-11] MEDS ORDERED: ONDANSETRON 4 MG/2 ML VIAL IVP PRN (17:01)
[2024-09-11] MEDS: POTASSIUM CHLOR 10 MEQ/100 ML 10 MEQ/100 ML BAG IV ONE (17:13)
[2024-09-11] MEDS: LACTATED RINGERS 1,000 ML IV SCH (17:14)
[2024-09-11] MEDS: SODIUM CHLORIDE FLUSH 0.9% 10 ML SYRINGE IVP SCH (17:17)
[2024-09-11] MEDS: LIDOCAINE VISCOUS 2% 15 ML UDC MM STA (17:18)
--- NOTE | 2024-09-11 20:32 | CONSULTATION NOTE ---
History of Present Illness History of Present Illness HPI Comment/Other: 74yoM presented to ED with 48hours of nausea and vomiting. He had 1-2 episodes of diarrhea over the course of this time, but otherwise was not passing flatus. Denies prior similar episodes. Denies fever or other complaints. No inciting event, started around 3AM. No prior abdominal surgeries. No hernias. Reports up to date on colonoscopy done at [facility], 2-3yrs ago, normal. Feels he was distended prior to the repetitive vomiting, but now more or less at his baseline. PFS Active Problems All Active Problems (Updated 09/11/24 @ 20:26 by Alejandra Morris DO) Hypertension (Acute) Prediabetes (Acute) RUPA (acute kidney injury) (Acute) Acute dehydration (Acute) Vomiting (Acute) SBO (small bowel obstruction) (Acute) Medical History Medical History (Updated 09/11/24 @ 20:26 by Alejandra Morris DO) PVD (peripheral vascular disease) Surgical History Surgical History (Updated 09/11/24 @ 20:26 by Alejandra Morris DO) History of procedure for peripheral vascular disease (~2016) Proximal LLE stent Social History Social History (Updated 09/11/24 @ 16:20 by Kodak Baugh MD) Smoking Status: Former smoker If you are a former smoker, when did you quit? (Date/Year): 20 years ago How many cigarettes a day do you smoke? (20 cigarettes=1 Pk): 30 Relationship: Level: Independent Do you feel safe in your home environment?: Yes Suffered physical, verbal, emotional, or financial abuse?: No Substance Use: denies use POLST Patient has POLST: No POLST Status: DNR Meds/Allgy Home Medications Ambulatory Orders Medication Instructions Recorded Confirmed aspirin 81 mg tablet,delayed 81 mg ORAL DAILY 11/14/13 09/11/24 release (Aspir-) amlodipine 10 mg tablet 10 mg PO DAILY 09/11/2408/24 atorvastatin 80 mg tablet (Lipitor) 80 mg PO DAILY 09/11/24 celecoxib 100 mg capsule mg 09/11/24 cetirizine 10 mg tablet mg 09/11/24 chlorthalidone 50 mg tablet 50 mg PO DAILY 05/20/25 05 /20/25 cholecalciferol (vitamin D3) 50 2,000 unit PO DAILY 09/11/24 mcg (2,000 unit) capsule (Vitamin D3) glucosamine sulfate 500 mg tablet 2,000 mg PO DAILY 09/11/24 (Glucosamine) losartan 100 mg tablet mg 09/11/24 metformin 500 mg tablet,extended 500 mg PO DAILY 09/1109/11/24 release 24 hr (Glucophage XR) timolol maleate 0.5 % eye gel 09/11/24 forming solution Allergies Allergies Allergy/AdvReac Type Severity Reaction Status Date / Time No Known Drug Allergies Allergy Unverified 09/11/24 12:55 Results Lab Results Lab results reviewed: Yes 09/11/24 13:20 09/11/24 13:20 Other Lab Results: Lab Results x24hrs 09/11/24 09/11/24 Range/Units 14:17 13:20 WBC 11.5 H (4.8-10.8) x10^3/uL RBC 4.74 (4.70-6.10) 10^6/uL Hgb 14.3 (14.0-18.0) g/dL Hct 42.5 (42.0-52.0) % MCV 89.7 (80.0-94.0) fL MCH 30.2 (27.0-31.0) pg MCHC 33.6 (32.0-36.0) g/dL RDW 14.3 (12.0-15.0) % Plt Count 277 (130-450) 10^3/uL MPV 10.2 (7.4-11.4) fL Neut # (Auto) 9.4 H (1.5-6.6) 10^3/uL Lymph # (Auto) 1.0 L (1.5-3.5) 10^3/uL [place] # (Auto) 1.0 (0.0-1.0) 10^3/uL Eos # (Auto) 0.0 (0.0-0.7) 10^3/uL Baso # (Auto) 0.0 (0.0-0.1) 10^3/uL Absolute Nucleated RBC 0.00 x10^3/uL Nucleated RBC % 0.0 /100WBC Sodium 136 (135-145) mmol/L Potassium 3.4 L (3.5-4.5) mmol/L Chloride 96 L (101-111) mmol/L Carbon Dioxide 24 (21-32) mmol/L Anion Gap 16.0 H (6-13) BUN 52 H (6-20) mg/dL Creatinine 2.8 H (0.6-1.3) mg/dL Estimated GFR (MDRD) 22 L (>89) Glucose 151 H (74-104) mg/dL Calcium 9.2 (8.5-10.3) mg/dL Magnesium 1.9 (1.7-2.3) mg/dL Total Bilirubin 1.0 (0.2-1.0) mg/dL AST 19 (10-42) IU/L ALT 15 (10-60) IU/L Alkaline Phosphatase 55 (42-121) IU/L Total Protein 7.7 (6.4-8.9) g/dL Albumin 4.4 (3.2-5.5) g/dL Globulin 3.3 (2.1-4.2) g/dL Albumin/Globulin Ratio 1.3 (1.0-2.2) Lipase 23 (11-82) U/L Urine Color DARK YELLOW Urine Clarity CLEAR (CLEAR) Urine pH 5.5 (5.0-7.5) PH Ur Specific [place] >=1.030 H (1.002-1.030) Urine Protein 30 H (NEGATIVE) mg/dL Urine Glucose (UA) NEGATIVE (NEGATIVE) mg/dL Urine Ketones TRACE (NEGATIVE) mg/dL Urine Occult Blood NEGATIVE (NEGATIVE) Urine Nitrite NEGATIVE (NEGATIVE) Urine Bilirubin SMALL H (NEGATIVE) Urine Urobilinogen 0.2 (NORMAL) (NORMAL) E.U./dL Ur Leukocyte Esterase NEGATIVE (NEGATIVE) Urine RBC 0-5 (0-5) /HPF Urine WBC 4-5 (0-3) /HPF Ur Squamous Epith Cells RARE Squamous (<= Few) Urine Bacteria Few (None Seen) /HPF Urine Casts 11-25 Hyaline Casts /LPF Ur Microscopic Review INDICATED Urine Culture Comments NOT INDICATED Diagnostic Imaging Results Diagnostic Imaging Results: positive Read contemporaneously Diagnostic Imaging Results Comments: PROCEDURE: CT Abdomen/Pelvis WO INDICATIONS: vomiting 3 days and RUQ abd tender. TECHNIQUE: A CT scan of the abdomen and pelvis was performed without the use of intravenous contrast. Images were recorded and evaluated at appropriate window settings. Reformats: coronal and sagittal. For radiation dose reduction, the following was used: automated exposure control, adjustment of mA and/or kV according to patient size. COMPARISON: None FINDINGS: Image quality: Diagnostic Lower chest: Mild right lung base opacities and reticular changes. No pleural effusions. Background emphysema of the parenchyma. Normal heart size. Coronary calcifications. Liver: No contour deforming mass. Solid organs are not well assessed without IV contrast. Moderate hepatic steatosis Gallbladder and biliary system: Unremarkable, nondilated Pancreas: No ductal dilation Background parenchymal atrophy Spleen: Nonenlarged Adrenals: No discrete nodules Kidneys: No contour deforming solid mass There are scattered cysts. No hydronephrosis or obstructing calculus by stone. Vessels and lymph nodes: Borderline abdominal aortic aneurysm at 3 cm. Areas of irregular luminal plaque are present, not well assessed however on this noncontrast study. No pathologic lymphadenopathy by size criteria. Bowel and peritoneum: No drainable abscess or ascites. Bowel obstruction, with moderate distention of the proximal loops measuring up to 3.9 cm. Nondilated appendix. The right lower quadrant distal ileal loops are underdistended. Transition points in the lower midline abdomen. Colonic diverticulosis. No acute inflammation is seen. Body wall: Unremarkable Pelvis: Bladder is unremarkable. Prostate is unremarkable limited CT evaluation Bones: No aggressive appearing osseous abnormality. Advanced lumbosacral degenerative changes are present. Sacroiliac ankylosis. Diffuse sclerotic lesions of the vertebral bodies favored to represent Modic changes. IMPRESSION: Small bowel obstruction, with transition point in the lower midline abdomen. Colonic diverticula, no definite acute inflammation. Right lung base mild opacities, possibly infectious or inflammatory. Mild reticular changes might represent background fibrosis. There is also emphysema. Other findings above. Reviewed by: Efrem Martínez MD on 09/11/2024 2:43 PM PDT Review of Systems Status of ROS: 10 or more systems reviewed and unremarkable except as noted in history and below Exam Exam Vital Signs: Vital Signs x48h Temp Pulse Pulse Resp BP BP Pulse Ox 09/11/24 16:44 36.2 C L 98 20 110/72 98 09/11/24 16:00 86 18 111/51 L 95 09/11/24 14:15 93 20 101/66 97 09/11/24 14:00 90 20 125/67 98 09/11/24 13:45 87 20 125/67 97 05/20/25 13:28 88 20 103/62 96 09/11/24 13:15 98 20 70/50 L 93 09/11/24 13:00 101 H 20 78/50 L 88 L 09/11/24 12:53 36.0 C L 100 18 92/58 L 95 O2 Flow Rate 09/11/24 16:44 96 09/11/24 16:00 09/11/24 14:15 09/11/24 14:00 2 09/11/24 13:45 2 09/11/24 13:28 2 09/11/24 13:15 2 09/11/24 13:00 09/11/24 12:53 Constitutional normal general appearance, no apparent distress and abnormal body habitus (obese) HENMT normocephalic Neck/C-Spine visual inspection normal Respiratory normal respiratory effort Cardiovascular normal heart rate noted Gastrointestinal soft, protuberant abdomen at baseline/not distended per patient, nontender throughout Extremities normal to inspection Neurology no movement abnormality noted and GCS 15 Psychiatry mental status grossly normal and oriented x3 Skin skin color normal Conclusion/Plan Problem List (1) SBO (small bowel obstruction): Plan: 74yoM admitted with de jessica small bowel obstruction, in absence of abdominal surgical history and without hernias by exam or imaging. Also with RUPA 2/2 intractable vomiting with volume depletion. Mild leukocytosis to 11, tachycardic to 101 but hypotensive to SBP 70s in the ER - fluid responsive. CT with transition point within the ileum, positioned within lower midline abdomen. He is nontender. - NGT placed in ED - AXR confirmed NGT in stomach - NGT to LIWS - NPO with IVF Discussed with patient the concern for abdominal mass in the setting of de jessica SBO without obvious apparent etiology. Discussed that while initial treatment effort is resolution of the obstruction, the determination of underlying etiology remains important and often challenging. Discussed options of (presuming NGT decompresison relieves obstruction) clinically monitoring for recurrence, utilizing multiple imaging modalities to rule out various tumor types or pathologies, or the most definitive option of surgical exploration. He understood and quickly elected for an early definitive surgical exploration. We did discuss the risks of surgery to include possible open surgery, bowel resection, damage to surrounding structures, infection, bleeding, etc. Given that he has opted for surgical exploration, will plan for diagnostic laparoscopy tomorrow, regardless of resolution of bowel obstruction. - diagnostic laparoscopy, possible exploratory laparotomy, possible adhesiolysis, possible bowel resection. Alejandra Morris DO, FACS General Surgeon, [place] (2) Acute dehydration: (3) RUPA (acute kidney injury): Lab Results Lab results reviewed: Yes 09/11/24 13:20 09/11/24 13:20 Diagnostic Imaging Results Diagnostic Imaging Results: positive Read contemporaneously
[2024-09-11] MEDS: PHENOL THROAT SPRAY 177 ML MM PRN (20:58)
[2024-09-11] MEDS ORDERED: HEPARIN 5,000 UNIT/ML VIAL SUBQ SCH (21:00)
[2024-09-12 06:12] LABS: HCT - HEMATOCRIT 37.2 % (42.0-52.0); MEAN CORPUSCULAR HEMOGLOBIN 29.9 pg (27.0-31.0); MEAN CORPUSCULAR HGB CONC 32.3 g/dL (32.0-36.0); MEAN CORPUSCULAR VOLUME 92.8 fL (80.0-94.0); MEAN PLATELET VOLUME 9.9 fL (7.4-11.4); RED BLOOD COUNT 4.01 10^6/uL (4.70-6.10); RED CELL DISTRIBUTION WIDTH 14.3 % (12.0-15.0); WHITE BLOOD COUNT 7.5 x10^3/uL (4.8-10.8)
[2024-09-12 06:30] LABS: CREATININE 1.3 mg/dL (0.6-1.3); MAGNESIUM 1.9 mg/dL (1.7-2.3); POTASSIUM 3.4 mmol/L (3.5-4.5)
[2024-09-12] MEDS: POTASSIUM CHLOR 10 MEQ/100 ML 10 MEQ/100 ML BAG IV ONE (08:42)
--- NOTE | 2024-09-12 10:00 | PROVIDER PROGRESS NOTE ---
Subjective Prog Note Date Prog Note Date: 09/12/24 Prog Note Time: 09:58 Subjective Pt reports feeling: Improved Subjective: Patient reports improvement in symptoms without ABD pain, nausea, or vomiting. States appetite has returned. He has had a small BM last night and passed flatus multiple times. He denies history of similar episode prior to 2 days ago. He denies personal or family history of colon cancer. Last coloscopy was 2-3 years ago and normal per patient. Denies history of blood in stool. Current Medications Current Medications Current Medications: Current Medications Generic Name Dose Route Start Last Admin Trade Name Freq PRN Reason Stop Dose Admin Atorvastatin Calcium 80 mg 09/13/24 09:00 Atorvastatin 40 Mg Tablet PO DAILY MRAK Lactated Ringer's 1,000 mls @ 100 mls/hr 09/11/24 17:01 09/12/24 01:57 Lr IV 100 mls/hr .Q10H MARK Administration Ondansetron HCl 4 mg 09/11/24 17:01 Ondansetron Odt 4 Mg Tablet TL Q6HR PRN Nausea / Vomiting Ondansetron HCl 4 mg 09/11/24 17:01 Ondansetron 4 Mg/2 Ml Vial IVP Q6HR PRN Nausea / Vomiting Phenol/Menthol 2 sprays 09/11/24 20:26 09/11/24 20:58 Phenol Throat [place] 177 Ml MM 2 sprays Q2HR PRN Administration Throat Pain Sodium Chloride 10 ml 09/11/24 17:01 Sodium Chloride Flush 0.9% 10 Ml Syringe IVP PRN PRN NEEDED PER PROVIDER ORDERS Sodium Chloride 10 ml 09/11/24 17:01 09/12/24 08:42 Sodium Chloride Flush 0.9% 10 Ml Syringe IVP 10 ml 0100,0900,1700 MARK Administration Objective Vital Signs/Intake & Output Reviewed Vital Signs: Yes Vital Signs: Vital Signs x48h Temp Pulse Resp BP Pulse Ox 09/12/24 08:58 36.5 C 74 20 112/55 L 93 Intake & Output: Intake & Output 09/09/24 09/10/24 09/11/24 09/12/24 23:59 23:59 23:59 23:59 Intake Total 3605 / 3605 417 / 417 Output Total 200 / 200 300 / 300 Balance 3405 / 3405 117 / 117 Weight (kg) 126 kg Objective General Appearance: positive No acute distress and Alert; negative Anxious Eyes Bilateral: positive Normal inspection, PERRL and Conjunctivae nml ENT: positive ENT inspection nml, Pharynx nml and No signs of dehydration Neck: positive Nml inspection, Thyroid nml and No JVD Respiratory: positive Chest non-tender, No respiratory distress and Breath sounds nml Cardiovascular: positive Regular rate & rhythm, No murmur and No gallop Abdomen: positive Non-tender, Nml bowel sounds and No distention; negative Rebound Back: positive Nml inspection; negative CVA tenderness (R) or CVA tenderness (L) Skin: positive Color nml, No rash and Warm Extremities: positive Non-tender, Full ROM and No pedal edema Neurologic/Psychiatric: positive Oriented x3, CN's nml (2-12), Motor nml and Mood/affect nml Lab Results 09/12/24 05:58 09/12/24 05:58 Other Labs: Lab Results x24hrs 09/12/24 09/11/24 09/11/24 Range/Units 05:58 14:17 13:20 WBC 7.5 11.5 H (4.8-10.8) x10^3/uL RBC 4.01 L 4.74 (4.70-6.10) 10^6/uL Hgb 12.0 L 14.3 (14.0-18.0) g/dL Hct 37.2 L 42.5 (42.0-52.0) % MCV 92.8 89.7 (80.0-94.0) fL MCH 29.9 30.2 (27.0-31.0) pg MCHC 32.3 33.6 (32.0-36.0) g/dL RDW 14.3 14.3 (12.0-15.0) % Plt Count 211 277 (130-450) 10^3/uL MPV 9.9 10.2 (7.4-11.4) fL Neut # (Auto) 9.4 H (1.5-6.6) 10^3/uL Lymph # (Auto) 1.0 L (1.5-3.5) 10^3/uL Daniels # (Auto) 1.0 (0.0-1.0) 10^3/uL Eos # (Auto) 0.0 (0.0-0.7) 10^3/uL Baso # (Auto) 0.0 (0.0-0.1) 10^3/uL Absolute Nucleated RBC 0.00 x10^3/uL Nucleated RBC % 0.0 /100WBC Sodium 137 136 (135-145) mmol/L Potassium 3.4 L 3.4 L (3.5-4.5) mmol/L Chloride 104 96 L (101-111) mmol/L Carbon Dioxide 24 24 (21-32) mmol/L Anion Gap 9.0 16.0 H (6-13) BUN 43 H 52 H (6-20) mg/dL Creatinine 1.3 2.8 H (0.6-1.3) mg/dL Estimated GFR (MDRD) 54 L 22 L (>89) Glucose 99 151 H (74-104) mg/dL Calcium 8.0 L 9.2 (8.5-10.3) mg/dL Magnesium 1.9 1.9 (1.7-2.3) mg/dL Total Bilirubin 1.0 (0.2-1.0) mg/dL AST 19 (10-42) IU/L ALT 15 (10-60) IU/L Alkaline Phosphatase 55 (42-121) IU/L Total Protein 7.7 (6.4-8.9) g/dL Albumin 4.4 (3.2-5.5) g/dL Globulin 3.3 (2.1-4.2) g/dL Albumin/Globulin Ratio 1.3 (1.0-2.2) Lipase 23 (11-82) U/L Urine Color DARK YELLOW Urine Clarity CLEAR (CLEAR) Urine pH 5.5 (5.0-7.5) PH Ur Specific [place] >=1.030 H (1.002-1.030) Urine Protein 30 H (NEGATIVE) mg/dL Urine Glucose (UA) NEGATIVE (NEGATIVE) mg/dL Urine Ketones TRACE (NEGATIVE) mg/dL Urine Occult Blood NEGATIVE (NEGATIVE) Urine Nitrite NEGATIVE (NEGATIVE) Urine Bilirubin SMALL H (NEGATIVE) Urine Urobilinogen 0.2 (NORMAL) (NORMAL) E.U./dL Ur Leukocyte Esterase NEGATIVE (NEGATIVE) Urine RBC 0-5 (0-5) /HPF Urine WBC 4-5 (0-3) /HPF Ur Squamous Epith Cells RARE Squamous (<= Few) Urine Bacteria Few (None Seen) /HPF Urine Casts 11-25 Hyaline Casts /LPF Ur Microscopic Review INDICATED Urine Culture Comments NOT INDICATED Diagnostic Imaging Diagnostic Imaging Comments: Diagnostic Imaging Results Diagnostic Imaging Results: positive Read contemporaneously Diagnostic Imaging Results Comments: PROCEDURE: CT Abdomen/Pelvis WO INDICATIONS: vomiting 3 days and RUQ abd tender. TECHNIQUE: A CT scan of the abdomen and pelvis was performed without the use of intravenous contrast. Images were recorded and evaluated at appropriate window settings. Reformats: coronal and sagittal. For radiation dose reduction, the following was used: automated exposure control, adjustment of mA and/or kV according to patient size. COMPARISON: None FINDINGS: Image quality: Diagnostic Lower chest: Mild right lung base opacities and reticular changes. No pleural effusions. Background emphysema of the parenchyma. Normal heart size. Coronary calcifications. Liver: No contour deforming mass. Solid organs are not well assessed without IV contrast. Moderate hepatic steatosis Gallbladder and biliary system: Unremarkable, nondilated Pancreas: No ductal dilation Background parenchymal atrophy Spleen: Nonenlarged Adrenals: No discrete nodules Kidneys: No contour deforming solid mass There are scattered cysts. No hydronephrosis or obstructing calculus by stone. Vessels and lymph nodes: Borderline abdominal aortic aneurysm at 3 cm. Areas of irregular luminal plaque are present, not well assessed however on this noncontrast study. No pathologic lymphadenopathy by size criteria. Bowel and peritoneum: No drainable abscess or ascites. Bowel obstruction, with moderate distention of the proximal loops measuring up to 3.9 cm. Nondilated appendix. The right lower quadrant distal ileal loops are underdistended. Transition points in the lower midline abdomen. Colonic diverticulosis. No acute inflammation is seen. Body wall: Unremarkable Pelvis: Bladder is unremarkable. Prostate is unremarkable limited CT evaluation Bones: No aggressive appearing osseous abnormality. Advanced lumbosacral degenerative changes are present. Sacroiliac ankylosis. Diffuse sclerotic lesions of the vertebral bodies favored to represent Modic changes. IMPRESSION: Small bowel obstruction, with transition point in the lower midline abdomen. Colonic diverticula, no definite acute inflammation. Right lung base mild opacities, possibly infectious or inflammatory. Mild reticular changes might represent background fibrosis. There is also emphysema. Other findings above. Reviewed by: Efrem Marítnez MD on 09/11/2024 2:43 PM PDT Assessment/Plan Problem List (1) SBO (small bowel obstruction): Impression: -Resolving with small BM last night and continue flatus. No ABD pain, N/V. -Consider restarting Lipitor -Given abscence of prior ABD surgery and no apparent hernia, concerns for ABD mass. -Patient consulted with surgery to discuss observation vs exploratory laparotomy with possible adhesiolysis and bowel resection. He will proceed surgically. General surgery following. (2) Acute dehydration: Impression: -Improving on IV fluids. -Continue NPO with plans for surgery. (3) RUPA (acute kidney injury): Impression: -Improving after fluid replacement. Continue monitoring. (4) Hypertension: Impression: -Hold antihypertensives at this time as patient's blood pressure's have been soft Qualifiers: Hypertension type: unspecified Qualified Code(s): I10 - Essential (primary) hypertension (5) Prediabetes: Impression: -Continue statin. Hold metformin while inpatient.
--- NOTE | 2024-09-12 11:13 | ANESTHESIA PROCEDURE NOTE ---
Pre-Anesthesia VS, & Labs Diagnosis Surgical Diagnosis:: SBO Procedure Procedure: diagnostic laparoscopy Vitals Vital Signs: Temp Pulse Resp BP Pulse Ox O2 Flow Rate 36.5 C 74 20 112/55 L 93 96 09/12/24 08:58 09/12/24 08:58 09/12/24 08:58 09/12/24 08:58 09/12/24 08:58 09/11/24 16:44 NPO NPO: >8 hours Lab Results Current Lab Results: Laboratory Tests 09/12/24 05:58: WBC 7.5, RBC 4.01 L, Hgb 12.0 L, Hct 37.2 L, MCV 92.8, MCH 29.9, MCHC 32.3, RDW 14.3, Plt Count 211, MPV 9.9, Sodium 137, Potassium 3.4 L, Chloride 104, Carbon Dioxide 24, Anion Gap 9.0, BUN 43 H, Creatinine 1.3, E stimated GFR (MDRD) 54 L, Glucose 99, Calcium 8.0 L, Magnesium 1.9 09/11/24 13:20: WBC 11.5 H, RBC 4.74, Hgb 14.3, Hct 42.5, MCV 89.7, MCH 30.2, MCHC 33.6, RDW 14.3, Plt Count 277, MPV 10.2, Neut # (Auto) 9.4 H, Lymph # (Auto) 1.0 L, [place] # (Auto) 1.0, Eos # (Auto) 0.0, Baso # (Auto) 0.0, Absolute Nucleated RBC 0.00, Nucleated RBC % 0.0, Sodium 136, Potassium 3.4 L, Chloride 96 L, Carbon Dioxide 24, Anion Gap 16.0 H, BUN 52 H, Creatinine 2.8 H, Estimated GFR (MDRD) 22 L, Glucose 151 H, Calcium 9.2, Magnesium 1.9, Total Bilirubin 1.0, AST 19, ALT 15, Alkaline Phosphatase 55, Total Protein 7.7, Albumin 4.4, Globulin 3.3, Albumin/Globulin Ratio 1.3, Lipase 23 09/12/24 05:58 09/12/24 05:58 Meds/Allgy Home Medications Ambulatory Orders Medication Instructions Recorded Confirmed aspirin 81 mg tablet,delayed 81 mg ORAL DAILY 11/14/13 09/11/24 release (Aspir-) amlodipine 10 mg tablet 10 mg PO DAILY 09/11/24 05/2 0/ atorvastatin 80 mg tablet (Lipitor) 80 mg PO DAILY 09/11/24 celecoxib 100 mg capsule mg 09/11/24 cetirizine 10 mg tablet mg 09/11/24 chlorthalidone 50 mg tablet 50 mg PO DAILY 09/11/24 cholecalciferol (vitamin D3) 50 2,000 unit PO DAILY 09/11/24 mcg (2,000 unit) capsule (Vitamin D3) glucosamine sulfate 500 mg tablet 2,000 mg PO DAILY 09/11/24 (Glucosamine) losartan 100 mg tablet mg 09/11/24 metformin 500 mg tablet,extended 500 mg PO DAILY 09/1109/11/24 release 24 hr (Glucophage XR) timolol maleate 0.5 % eye gel 09/11/24 forming solution Allergies Allergies Allergy/AdvReac Type Severity Reaction Status Date / Time No Known Drug Allergies Allergy Unverified 09/11/24 12:55 PFSH Active Problems All Active Problems (Updated 09/11/24 @ 20:26 by Alejandra Morris DO) Hypertension (Acute) Prediabetes (Acute) RUPA (acute kidney injury) (Acute) Acute dehydration (Acute) Vomiting (Acute) SBO (small bowel obstruction) (Acute) Medical History Medical History (Updated 09/11/24 @ 20:26 by Alejandra Morris DO) PVD (peripheral vascular disease) Surgical History Surgical History (Updated 09/11/24 @ 20:26 by Alejandra Morris DO) History of procedure for peripheral vascular disease (~2017) Proximal LLE stent Social History Social History (Updated 09/12/24 @ 11:10 by Kendy James CRNA) Smoking Status: Former smoker If you are a former smoker, when did you quit? (Date/Year): 20 years ago How many cigarettes a day do you smoke? (20 cigarettes=1 Pk): 30 Relationship: Level: Independent Do you feel safe in your home environment?: Yes Suffered physical, verbal, emotional, or financial abuse?: No ETOH Use: Beer Frequency: Daily Number of Amount/day: 3 ETOH Use Details: pt reports drinking at minimum 21x/week Substance Use: denies use POLST Patient has POLST: No POLST Status: DNR Anesthesia Exam (Expanded) Exam General: Alert, Oriented x3 and Cooperative Dental: Partials Upper Mouth Openin Fingerbreadth Neck Mobility: Normal Mallampati classification: II Thyromental Distance: 4-6 cm Respiratory: Lungs clear Cardiovascular: Regular rate Mental/Cognitive Status: Alert/Oriented X3 Cognitive Status: Within normal limits Other Exam Comments:: pt reports sore throat, Exam Exam Vital Signs: Vital Signs x48h Temp Pulse Resp BP Pulse Ox 09/12/24 08:58 36.5 C 74 20 112/55 L 93 Eyes Left pupil fixed and dilated from old injury (30+ years ago). Left eye red, pt reports that is his baseline s/p cataract surgery many years ago Plan Problem List (1) SBO (small bowel obstruction): Plan: 74yoM admitted with de jessica small bowel obstruction, in absence of abdominal surgical history and without hernias by exam or imaging. Also with RUPA 2/2 intractable vomiting with volume depletion. Mild leukocytosis to 11, tachycardic to 101 but hypotensive to SBP 70s in the ER - fluid responsive. CT with transition point within the ileum, positioned within lower midline abdomen. He is nontender. - NGT placed in ED - AXR confirmed NGT in stomach - NGT to LIWS - NPO with IVF Discussed with patient the concern for abdominal mass in the setting of de jessica SBO without obvious apparent etiology. Discussed that while initial treatment effort is resolution of the obstruction, the determination of underlying etiology remains important and often challenging. Discussed options of (presuming NGT decompresison relieves obstruction) clinically monitoring for recurrence, utilizing multiple imaging modalities to rule out various tumor types or pathologies, or the most definitive option of surgical exploration. He understood and quickly elected for an early definitive surgical exploration. We did discuss the risks of surgery to include possible open surgery, bowel resection, damage to surrounding structures, infection, bleeding, etc. Given that he has opted for surgical exploration, will plan for diagnostic laparoscopy tomorrow, regardless of resolution of bowel obstruction. - diagnostic laparoscopy, possible exploratory laparotomy, possible adhesiolysis, possible bowel resection. Alejandra Morris DO, FACS General Surgeon, [facility] (2) Acute dehydration: (3) RUPA (acute kidney injury): (4) Hypertension: Qualifiers: Hypertension type: unspecified Qualified Code(s): I10 - Essential (primary) hypertension (5) Prediabetes: (6) Vomiting: (7) PVD (peripheral vascular disease): (8) History of procedure for peripheral vascular disease: Plan Anesthesia Type: General Consent for Procedure(s) Verified and Reviewed: Yes Code Status: Do Not Attempt Resuscitation ASA Classification ASA classification: 3-Severe systemic disease Is this case an emergency?: No
--- NOTE | 2024-09-12 12:36 | PHARMACY PROGRESS NOTE ---
Best Possible Medication History Admit Date and Time: 09/11/24 1516 Home Medications Medication Instructions Recorded Confirmed Type aspirin 81 mg tablet,delayed 81 mg ORAL DAILY 11/14/13 09/11/24 History release (Aspir-) amlodipine 10 mg tablet 10 mg PO DAILY 09/11/24 05 History atorvastatin 80 mg tablet (Lipitor) 80 mg PO DAILY 09/11/24 History celecoxib 100 mg capsule 100 mg PO BID PRN pain 09/1109/12/24 History cetirizine 10 mg tablet 10 mg PO DAILY 09/11/2408/24 History chlorthalidone 50 mg tablet 50 mg PO DAILY 09/11/24 History glucosamine sulfate 500 mg tablet 2,000 mg PO DAILY 09/11/24 History (Glucosamine) losartan 100 mg tablet 100 mg PO DAILY 09/11/24 History metformin 500 mg tablet,extended 500 mg PO DAILY 09/1109/11/24 History release 24 hr (Glucophage XR) timolol maleate 0.5 % eye gel 1 drp ophthalmic (eye) Q 48H 09/11/24 09/12/24 History forming solution difluprednate 0.05 % eye drops 1 drp ophthalmic (eye) Q48H 09/12/24 09/12/24 History Processed by: Pharmacy Medications reviewed in ED?: No Medication History completed: Yes Patient Interview: Completed Secondary Source(s): Insurance records [facility] Statement: As the person ultimately responsible for medication therapy, providers are able to order a medication from an existing home medication list in [facility] via the "Reconcile Routine" prior to Confirmation of that medication by manager support. Such practice is discouraged except when the physician, in their clinical judgment, deems that a medical need exists for a medication without regard to previous use.
[2024-09-12] MEDS ORDERED: BUPIVACAINE 0.25% PF 10 ML VIAL ONE (13:35)
[2024-09-12] MEDS ORDERED: LIDOCAINE 1%-EPI 1:100000 20 ML MDV ONE (13:35)
[2024-09-12] MEDS ORDERED: MIDAZOLAM 2 MG/2 ML VIAL ONE (13:56)
[2024-09-12] MEDS ORDERED: ONDANSETRON 4 MG/2 ML VIAL ONE (13:56)
[2024-09-12] MEDS ORDERED: ROCURONIUM 50 MG/5 ML VIAL ONE ×2 (13:56→16:07)
[2024-09-12] MEDS ORDERED: fentaNYL 100 MCG/2 ML VIAL ONE (13:56)
[2024-09-12] MEDS ORDERED: HYDROmorphone 1 MG/ML CARPUJECT ONE (13:56)
[2024-09-12] MEDS ORDERED: LIDOCAINE-PF 2% 10 ML AMP SUBQ ONE (13:56)
[2024-09-12] MEDS ORDERED: PROPOFOL 200 MG/20 ML VIAL IVP ONE (13:56)
[2024-09-12] MEDS ORDERED: SUCCINYLCHOLINE 200 MG/10 ML VIAL ONE (14:26)
[2024-09-12] MEDS ORDERED: ceFAZolin 1 GM VIAL ONE (14:37)
[2024-09-12] MEDS ORDERED: ACETAMINOPHEN 1,000 MG/100 ML 1,000 MG/100 ML BAG IV ONE (15:19)
[2024-09-12] MEDS ORDERED: SUGAMMADEX 200 MG/2 ML VIAL IVP ONE (16:42)
[2024-09-12] MEDS ORDERED: HYDROmorphone 0.5 MG/0.5 ML SYRINGE IVP PRN (17:06)
[2024-09-12] MEDS ORDERED: ePHEDrine 50 MG/ML VIAL IVP PRN (17:06)
[2024-09-12] MEDS ORDERED: ATROPINE ABBOJECT 1 MG/10 ML SYRINGE IVP PRN (17:06)
[2024-09-12] MEDS ORDERED: ONDANSETRON 4 MG/2 ML VIAL IVP PRN (17:06)
[2024-09-12] MEDS ORDERED: fentaNYL 100 MCG/2 ML VIAL IVP PRN (17:06)
[2024-09-12] MEDS ORDERED: NALOXONE 0.4 MG/ML VIAL IVP PRN (17:06)
--- NOTE | 2024-09-12 17:25 | OPERATIVE REPORT ---
Operative Report General Admit Date: 09/11/24 Procedure Data: Operation Date: 09/12/24 13:00 Proposed Procedures p Diagnostic Laparoscopy, POSSIBLE LAPAROTOMY, POSS. ADHESIOLYSIS, POSS. BOWEL RESECTION(Not Applicable) - Alejandra Morris DO Actual Procedures p Diagnostic Laparoscopy, lysis of adhesions, appendectomy(Not Applicable) - Alejandra Morris DO Pre-Op Diagnosis: de jessica small bowel obstruction without prior surgical history Anesthesia Type General Case Staff Anesthesia Provider: Kendy James Case Times Procedure Start: 09/12/24 14:53 Procedure End: 09/12/24 16:44 Time out: 09/12/24 14:53 Pre-Op Diagnosis: de jessica small bowel obstruction Post Op Diagnosis: Adhesive small bowel obstruction, normal appendix s/p appendectomy Procedure Note Intake, IV Amount (ml): 800 Estimated Blood Loss (ml): 10 Output, Urine Amount (ml): 300 Pathology: appendix Indications: 74yoM admitted with de jessica small bowel obstruction, in absence of abdominal surgical history and without hernias by exam or imaging. Also with RUPA 2/2 intractable vomiting with volume depletion. Mild leukocytosis to 11, tachycardic to 101 but hypotensive to SBP 70s in the ER - fluid responsive. CT with transition point within the ileum, positioned within lower midline abdomen. He is nontender. Discussed with patient the concern for abdominal mass in the setting of de jessica SBO without obvious apparent etiology. Discussed that while initial treatment effort is resolution of the obstruction, the determination of underlying etiology remains important and often challenging. Discussed options of (presuming NGT decompresison relieves obstruction) clinically monitoring for recurrence, utilizing multiple imaging modalities to rule out various tumor types or pathologies, or the most definitive option of surgical exploration. He understood and quickly elected for an early definitive surgical exploration. Findings: 1) sigmoid diverticulosis with adhesions of left pelvic side wall and small bowel; no active diverticulitis 2) Cecal diverticulum with impacted stool, adhesions to right abdominal side wall and small bowel; no active diverticulitis 3) Loop of terminal ileum tethered in pelvis posteriorly due to adhesions to both the sigmoid colon and cecum; tethered loop was transition point/site of small bowel obstruction 4) In dissecting free the obstructed loop of terminal ileum, the appendix was also dissected and isolated; opted to include appendectomy despite normal appendix. 5) No mass, meckels, infection or other abnormality within the small bowel or mesentery 6) small bowel ran from LOT to cecum x3 with no other abnormality identified 7) All bowel viable Complications: none Other Other Information/Narrative: The patient was brought to the operating room with universal protocol observed throughout. They were placed supine on the operating room table with the left arm tucked. A Islas was placed. General anesthesia with endotracheal tube was induced by the anesthesia service. The abdomen was prepped and draped in standard sterile fashion. A timeout was performed with all members of the team frances lloyd in agreement. Local anesthetic of 1% lidocaine with epinephrine mixed with Marcaine plain was injected into the periumbilical skin, and the skin was incised sharply. Blunt dissection down to the level of the fascia was performed. The umbilical stalk was elevated and the fascia was incised sharply in a vertical orientation and the peritoneal cavity was entered bluntly with a Clarice clamp. A 12 mm balloon trocar was placed. The abdomen was insufflated with CO2 gas to a pressure of 15 mmHg which the patient tolerated well. The laparoscope was inserted and visual inspection revealed no evidence of injury upon entry. Two additional 5mm trocars were placed under direct visualization: one in the left lower quadrant, one in the suprapubic position. Atraumatic graspers were introduced into the abdomen. The visualized small bowel was seen to be dilated and erythematous, with no ischemic bowel observed. There was a trace amount of serous fluid in the pelvis and right lower quadrant. The cecum was identified, and from there the small bowel was traced in a retrograde direction. The distal terminal ileum was decompressed, it tracked into the pelvis, tucked posterior to the sigmoid colon, and was unable to be elevated do to adhesions to the sigmoid colon anteriorly and left-laterally, and the pelvic side wall right-laterally. The proximal aspect of the tethered loop was traced, and the small bowel proximal to this was dilated. The small bowel was run all the way to the ligament of treitz; it was uniformly dilated from ligament of treitz to the tethered loop of ileum, with no other abnormalities identified. Using the ligasure device and laparoscopic scissor, careful adhesiolysis was undertaken in order to release the tethered loop of ileum from its adhesions within the pelvis and to the sigmoid and cecum. Note that the sigmoid colon had multiple diverticula and was itself adhesed to the left lateral side wall, and the cecum was adhesed to the right lateral side wall. Once the loop of ileum was completely freed, air from the proximal small bowel immediately traversed this loop into the cecum and right colon. The ileum was inspected and otherwise normal besides the described adhesions. In undertaking the lysis of adhesions, the appendix had to be dissected from the terminal ileum, and decision was made to complete and appendectomy to avoid potential future reoperation in this right lower quadrant. The mesoappendix was divided with the ligasure during the course of adhesiolysis; the base of the appendix was divided with a endoGIA stapler 30mm blue load, which was hemostatic. The appendix was placed in an endocatch bag and removed via the umbilical port. To facilitate exposure of the appendiceal base, the cecal adhesions to the right side wall were partially lysed; this revealed a laterally located large cecal diverticulum with impacted stool. The stool was able to be disimpacted from the diverticulum using the bowel grapser, provided confirmation that this was a diverticulum and not a cecal mass. Having completed sufficient adhesiolysis to release the tethered terminal ileum and thus relieve the small bowel obstruction, the entirety of the small bowel was run one final time, again confirming no pathologic findings other than the adhesions. The patient had no described history of either right or left sided diverticulitis, however given the intraoperative findings I could presume that he had undiagnosed or minor prior episodes of cecal and sigmoid diverticulitis which led to the obstructing adhesions as the source of this small bowel obst ruction. The trocars were removed under direct visualization. The umbilical fascia was closed with an 0 Vicryl [id number] suture. The umbilical wound was irrigated with clean irrigant. Hemostasis in the wound was achieved with Bovie electrocautery and all skin incisions were closed with subcuticular 4-0 Monocryl suture. Dressings of Steri-Strips, gauze, and Tegaderm were applied. The patient was extubated and awoken from general anesthesia. The islas was removed. There were no complications. All sponge needle counts were correct. The patient was transferred to the PACU in good condition. The NG tube that was in place prior to surgery was left in place. Alejandra Morris DO, FACS General Surgeon, [facility]
[2024-09-12 17:34] VITALS: BP 99/37
--- NOTE | 2024-09-12 17:59 | ANESTHESIA POST OP EVALUATION ---
Anesthesia Post Eval Post Anesthesia Eval Vitals: Last Vital Signs Temp 36.6 C 09/12/24 17:47 Pulse 65 09/12/24 17:47 Resp 14 09/12/24 17:47 BP 111/47 L 09/12/24 17:47 Pulse Ox 92 09/12/24 17:47 O2 Flow Rate 96 09/11/24 16:44 CV Function Including HR & BP: Stable Pain Control: Satisfactory Nausea & Vomiting: Negative Mental Status: Baseline Respiratory Status: Airway Patent Hydration Status: Satisfactory Anesthesia Complications: None
[2024-09-12] MEDS ORDERED: LACTATED RINGERS 1,000 ML IV SCH (18:00)
--- NOTE | 2024-09-12 19:22 | PROVIDER PROGRESS NOTE ---
Subjective General Admit Date: 09/11/24 Procedure Date: 09/12/24 Post Op Days: 0 Procedure Performed: diagnostic laparoscopy, lysis of adhesions, appendectomy Other Other Information/Narrative: Abdominal pain was improved this AM after overnight NGT decompression, had a small BM last night, no nausea today. To OR this afternoon- found have adhesive SBO with terminal ileum tethered in pelvis, presumably from prior sigmoid and/or cecal diverticulitis given adhesions involving both structures. Appendix was normal but removed. Surgery remained laparoscopic, uncomplicated. Review of Systems Status of ROS: 10 or more systems reviewed and unremarkable except as noted in history and below Exam Exam Vital Signs: Vital Signs x48h Temp Pulse Pulse Resp BP BP Pulse Ox 09/12/24 19:07 09/12/24 19:00 36.5 C 70 20 134/63 H 92 09/12/24 18:45 36.5 C 68 20 125/70 92 09/12/24 18:30 36.2 C L 70 16 123/63 93 09/12/24 18:15 36.2 C L 74 20 132/63 H 94 09/12/24 17:47 36.6 C 65 14 111/47 L 92 09/12/24 17:35 36.5 C 69 18 99/46 L 94 09/12/24 17:30 68 22 97 09/12/24 17:25 69 20 94 09/12/24 17:20 36.5 C 60 18 112/49 L 100 09/12/24 17:20 68 23 100 09/12/24 17:20 67 24 100 09/12/24 17:19 36.5 C 09/12/24 17:15 67 16 113/50 L 09/12/24 17:15 66 17 98 09/12/24 17:11 68 19 100 09/12/24 17:10 36.5 C 67 18 107/52 L 100 09/12/24 17:05 66 20 116/47 L 100 09/12/24 17:05 66 15 100 09/12/24 17:05 68 15 99 09/12/24 17:00 36.5 C 66 20 107/50 L 100 09/12/24 17:00 67 16 100 09/12/24 16:58 70 22 100 09/12/24 16:58 70 18 100 09/12/24 16:55 81 16 99 09/12/24 16:55 36.5 C O2 Flow Rate 09/12/24 19:07 3 09/12/24 19:00 3 09/12/24 18:45 3 09/12/24 18:30 2 09/12/24 18:15 2 09/12/24 17:47 09/12/24 17:35 09/12/24 17:30 09/12/24 17:25 09/12/24 17:20 09/12/24 17:20 09/12/24 17:20 09/12/24 17:19 09/12/24 17:15 09/12/24 17:15 09/12/24 17:11 09/12/24 17:10 09/12/24 17:05 09/12/24 17:05 09/12/24 17:05 09/12/24 17:00 09/12/24 17:00 09/12/24 16:58 09/12/24 16:58 09/12/24 16:55 09/12/24 16:55 Constitutional normal general appearance, no apparent distress and abnormal body habitus (obese) Respiratory normal respiratory effort Cardiovascular normal heart rate noted Gastrointestinal soft, protuberant abdomen at baseline/not distended per patient, nontender throughout Extremities normal to inspection Neurology GCS 15 Psychiatry oriented x3 Skin skin color normal Impression/Plan Problem List (1) SBO (small bowel obstruction): Plan: 74yoM admitted 09/11 with de jessica small bowel obstruction, in absence of abdominal surgical history and without hernias by exam or imaging. Also with RUPA 2/2 intractable vomiting with volume depletion. 09/12 - Diagnostic laparoscopy, lysis of adhesions, appendectomy. SBO due to ad hesive disease from prior diverticulitis (sigmoid/cecal). Normal appendix removed. No masses or other nefarious pathology. Post op plan: - return to medsurg - NGT remains in place to LIWS - obstruction was released surgically, though may still have ileus from running the bowel and lysis of adhesions - NPO/IVF until appropriate to remove NGT, then ADAT - OK to start DVT ppx on POD1 if hgb stable - No abx indicated - f/u with me in clinic in [address] Radhika Chan-Amy Morris DO, FACS General Surgeon, [place] (2) Acute dehydration: (3) RUPA (acute kidney injury): (4) Hypertension: Qualifiers: Hypertension type: unspecified Qualified Code(s): I10 - Essential (primary) hypertension (5) Prediabetes:
[2024-09-12] MEDS: MORPHINE 2 MG/ML CARPUJECT IVP PRN (23:28)
[2024-09-13 05:23] LABS: HCT - HEMATOCRIT 37.5 % (42.0-52.0); HGB - HEMOGLOBIN 11.6 g/dL (14.0-18.0); MEAN CORPUSCULAR HEMOGLOBIN 29.4 pg (27.0-31.0); MEAN CORPUSCULAR HGB CONC 30.9 g/dL (32.0-36.0); MEAN CORPUSCULAR VOLUME 95.2 fL (80.0-94.0); MEAN PLATELET VOLUME 9.6 fL (7.4-11.4); RED BLOOD COUNT 3.94 10^6/uL (4.70-6.10); RED CELL DISTRIBUTION WIDTH 14.1 % (12.0-15.0); WHITE BLOOD COUNT 7.6 x10^3/uL (4.8-10.8)
[2024-09-13 05:33] LABS: MAGNESIUM 1.9 mg/dL (1.7-2.3)
[2024-09-13 05:39] LABS: CALCIUM 8.4 mg/dL (8.5-10.3); CREATININE 0.9 mg/dL (0.6-1.3); POTASSIUM 3.5 mmol/L (3.5-4.5)
[2024-09-13] MEDS: HYDROmorphone 1 MG/ML CARPUJECT IVP PRN (05:50)
--- NOTE | 2024-09-13 06:32 | PROVIDER PROGRESS NOTE ---
Toe Trimmer Note Toe Trimmer Note Toe Trimmer Note: Was notified by patient's nurse Valencia that patient had a change overnight. He had increased output from his NGT and most recently a change in color to dark brownish red with particulates. She stated she was concerned that it was stool. She also note a change in the patient's physical appearance: abdomen more distended and tight. She stated that she had updated the surgeon overnight MD Alexandra. patient was given pain medication but without relief. She feels that the patient has continued to decline. -Stat CT abdomen and Pelvis CT ordered -Surgery to be notified by nurse of continued decline and CT results. -will continue to monitor closely.
[2024-09-13] MEDS ORDERED: DIATRIZOATE MEGLU/DIATRIZO SOD 30 ML BOTTLE PO ONE (06:36)
--- NOTE | 2024-09-13 07:49 | CT Report ---
PROCEDURE: CT Abdomen/Pelvis WO INDICATIONS: increase NGT output and pain postoperatively TECHNIQUE: A CT scan of the abdomen and pelvis was performed without the use of intravenous contrast. Images were recorded and evaluated at appropriate window settings. Reformats: coronal and sagittal. For radiation dose reduction, the following was used: automated exposure control, adjustment of mA and/or kV according to patient size. COMPARISON: 09/11/2024 FINDINGS: Image quality: Mild motion artifact Lower chest: Reticular changes at the lung bases along with atelectasis again seen. No dense consolidation or pleural effusion. An enteric tube is present, with tip in the gastric body. There are coronary calcifications. Liver: No contour deforming mass. Solid organs not well assessed without IV contrast Gallbladder and biliary system: Unremarkable gallbladder, nondilated biliary tree Pancreas: No ductal dilation Spleen: Nonenlarged Adrenals: No discrete nodules Kidneys: No contour deforming left renal mass. Suspected cysts are present. No hydronephrosis or obstructing calcified stone. Vessels and lymph nodes: No abdominal aortic aneurysm. There are mild areas of excavated plaques again seen in the abdominal aorta. No enlarged lymph nodes by size criteria. Bowel and peritoneum: Decreased small bowel obstruction. Fluid-filled mildly ectatic loops of small bowel are seen throughout the mid and upper abdomen. Colonic diverticulosis. Small amount of fluid is present along the right paracolic gutter. No drainable ascites or abscess. A 1.7 cm linear dense object is seen in the right lower quadrant, possibly within the terminal ileum () Trace pneumoperitoneum. Ingested oral contrast is seen to the level of the ligament of Treitz. Body wall: Anterior abdominal postsurgical changes Pelvis: Bladder is unremarkable. Small focus of air likely from instrumentation. Bones: There are degenerative osseous changes. Sacroiliac ankylosis. IMPRESSION: Decreased bowel dilation from obstruction. Ingested oral contrast is seen to the level of the ligament of Treitz. A 1.7 cm linear object is seen in the terminal ileum (), correlate with operative notes. This could also be ingested. (Reference image ) Trace postoperative pneumoperitoneum. Small amount of right paracolic gutter fluid without drainable fluid collection. Other incidental and nonacute findings above. This study was marked in PACS for communication to ensure receipt of the final report. Reviewed by: Efrem Martínez MD on 09/13/2024 7:47 AM PDT Approved by: Efrem Martínez MD on 09/13/2024 7:47 AM PDT Station ID: [id number]
[2024-09-13] MEDS: ATORVASTATIN 40 MG TABLET PO SCH (09:27)
[2024-09-13] MEDS: ACETAMINOPHEN 1,000 MG/100 ML 1,000 MG/100 ML BAG IV SCH ×2 (09:40→16:38)
--- NOTE | 2024-09-13 12:35 | PROVIDER PROGRESS NOTE ---
Subjective Prog Note Date Prog Note Date: 09/13/24 Prog Note Time: 12:32 Subjective Pt reports feeling: Improved Subjective: Patient is resting comfortably in bed on his side with NGT in place. States he overall feels better compared to initial onset of symptoms. Reports he had some moderate pain after surgery, which is better controlled with IV hydromorphone. Patient confirms that he has never had an episode of similar symptoms prior or ABD pain with N/V. Denies previous ABD injury. States he has had a BM today and continues to pass flatus. Current Medications Current Medications Current Medications: Current Medications Generic Name Dose Route Start Last Admin Trade Name Freq PRN Reason Stop Dose Admin Atorvastatin Calcium 80 mg 09/13/24 09:00 09/13/24 09:27 Atorvastatin 40 Mg Tablet PO 80 mg DAILY MARK Administration Heparin Sodium (Porcine) 5,000 unit 09/13/24 14:00 Heparin 5,000 Unit/Ml Vial SUBQ TID MARK Hydromorphone HCl 1 mg 09/13/24 05:41 09/13/24 05:50 Hydromorphone 1 Mg/Ml Carpuject IVP 1 mg Q2HR PRN Administration Severe Pain (Level 7-10) Lactated Ringer's 1,000 mls @ 100 mls/hr 09/11/24 17:01 09/13/24 09:40 Lr IV 100 mls/hr .Q10H MARK Administration Acetaminophen 1,000 mg in 100 mls @ 400 mls/hr 09/13/24 08:00 09/13/24 09:40 Acetaminophen IV 400 mls/hr Q6HR MARK Administration Morphine Sulfate 2 mg 09/12/24 21:32 09/13/24 03:41 Morphine 2 Mg/Ml Carpuject IVP 2 mg Q2HR PRN Administration Severe Pain (Level 7-10) Ondansetron HCl 4 mg 09/11/24 17:01 Ondansetron Odt 4 Mg Tablet TL Q6HR PRN Nausea / Vomiting Ondansetron HCl 4 mg 09/11/24 17:01 Ondansetron 4 Mg/2 Ml Vial IVP Q6HR PRN Nausea / Vomiting Phenol/Menthol 2 sprays 09/11/24 20:26 09/11/24 20:58 Phenol Throat [place] 177 Ml MM 2 sprays Q2HR PRN Administration Throat Pain Sodium Chloride 10 ml 09/11/24 17:01 Sodium Chloride Flush 0.9% 10 Ml Syringe IVP PRN PRN NEEDED PER PROVIDER ORDERS Sodium Chloride 10 ml 09/11/24 17:01 09/13/24 09:28 Sodium Chloride Flush 0.9% 10 Ml Syringe IVP 10 ml 0100,0900,1700 MARK Administration Objective Vital Signs/Intake & Output Reviewed Vital Signs: Yes Vital Signs: Vital Signs x48h Temp Pulse Resp BP Pulse Ox O2 Flow Rate 09/13/24 08:55 3 09/13/24 08:47 36.8 C 66 16 105/49 L 94 2 Intake & Output: Intake & Output 09/10/24 09/11/24 09/12/24 09/13/24 23:59 23:59 23:59 23:59 Intake Total 3605 / 3605 4902 / 4902 1040 / 1040 Output Total 200 / 200 1650 / 1650 1350 / 1350 Balance 3405 / 3405 3252 / 3252 -310 / -310 Weight (kg) 126 kg Objective General Appearance: positive No acute distress Eyes Bilateral: positive Normal inspection, PERRL and Conjunctivae nml ENT: positive ENT inspection nml, Pharynx nml and No signs of dehydration Neck: positive Nml inspection, Thyroid nml and No JVD Respiratory: positive Chest non-tender, No respiratory distress and Breath sounds nml Cardiovascular: positive Regular rate & rhythm, No murmur and No gallop Abdomen: positive Non-tender, Nml bowel sounds and No distention; negative Rebound Back: positive Nml inspection; negative CVA tenderness (R) or CVA tenderness (L) Skin: positive Color nml, No rash and Warm Extremities: positive Non-tender, Full ROM and No pedal edema Neurologic/Psychiatric: positive Oriented x3, CN's nml (2-12), Motor nml and Mood/affect nml Lab Results 09/13/24 05:08 09/13/24 05:08 Other Labs: Lab Results x24hrs 09/13/24 Range/Units 05:08 WBC 7.6 (4.8-10.8) x10^3/uL RBC 3.94 L (4.70-6.10) 10^6/uL Hgb 11.6 L (14.0-18.0) g/dL Hct 37.5 L (42.0-52.0) % MCV 95.2 H (80.0-94.0) fL MCH 29.4 (27.0-31.0) pg MCHC 30.9 L (32.0-36.0) g/dL RDW 14.1 (12.0-15.0) % Plt Count 222 (130-450) 10^3/uL MPV 9.6 (7.4-11.4) fL Sodium 140 (135-145) mmol/L Potassium 3.5 (3.5-4.5) mmol/L Chloride 103 (101-111) mmol/L Carbon Dioxide 30 (21-32) mmol/L Anion Gap 7.0 (6-13) BUN 27 H (6-20) mg/dL Creatinine 0.9 (0.6-1.3) mg/dL Estimated GFR (MDRD) 82 L (>89) Glucose 91 (74-104) mg/dL Calcium 8.4 L (8.5-10.3) mg/dL Magnesium 1.9 (1.7-2.3) mg/dL Diagnostic Imaging Diagnostic Imaging Results: positive Final report reviewed and Other Diagnostic Imaging Comments: EXAM: [id number] CT/ABPEWO ([id number]) PROCEDURE: CT Abdomen/Pelvis WO INDICATIONS: increase NGT output and pain postoperatively TECHNIQUE: A CT scan of the abdomen and pelvis was performed without the use of intravenous contrast. Images were recorded and evaluated at appropriate window settings. Reformats: coronal and sagittal. For radiation dose reduction, the following was used: automated exposure control, adjustment of mA and/or kV according to patient size. COMPARISON: 09/11/2024 FINDINGS: Image quality: Mild motion artifact Lower chest: Reticular changes at the lung bases along with atelectasis again seen. No dense consolidation or pleural effusion. An enteric tube is present, with tip in the gastric body. There are coronary calcifications. Liver: No contour deforming mass. Solid organs not well assessed without IV contrast Gallbladder and biliary system: Unremarkable gallbladder, nondilated biliary tree Pancreas: No ductal dilation Spleen: Nonenlarged Adrenals: No discrete nodules Kidneys: No contour deforming left renal mass. Suspected cysts are present. No hydronephrosis or obstructing calcified stone. Vessels and lymph nodes: No abdominal aortic aneurysm. There are mild areas of excavated plaques again seen in the abdominal aorta. No enlarged lymph nodes by size criteria. Bowel and peritoneum: Decreased small bowel obstruction. Fluid-filled mildly ectatic loops of small bowel are seen throughout the mid and upper abdomen. Colonic diverticulosis. Small amount of fluid is present along the right paracolic gutter. No drainable ascites or abscess. A 1.7 cm linear dense object is seen in the right lower quadrant, possibly within the terminal ileum () Trace pneumoperitoneum. Ingested oral contrast is seen to the level of the ligament of Treitz. Body wall: Anterior abdominal postsurgical changes Pelvis: Bladder is unremarkable. Small focus of air likely from instrumentation. Bones: There are degenerative osseous changes. Sacroiliac ankylosis. IMPRESSION: Decreased bowel dilation from obstruction. Ingested oral contrast is seen to the level of the ligament of Treitz. A 1.7 cm linear object is seen in the terminal ileum (), correlate with operative notes. This could also be ingested. (Reference image ) Trace postoperative pneumoperitoneum. Small amount of right paracolic gutter fluid without drainable fluid collection. Other incidental and nonacute findings above. This study was marked in PACS for communication to ensure receipt of the final report. Reviewed by: Efrem Martínez MD on 09/13/2024 7:47 AM PDT Approved by: Efrem Martínez MD on 09/13/2024 7:47 AM PDT Assessment/Plan Problem List (1) SBO (small bowel obstruction): Impression: -Resolved s/p exploratory laparotomy with adhesiolysis and appendectomy. Last BM today with passed flatus. -Likely secondary to De Randy/congenital adhesions vs inflammatory changes from unknown episodes of diverticulitis - NGT was noted to have some increased output with darker colored material. CT ABD/PEL with contrast was negative for signs of perforation or free fluid/stool. Positive for a 1.7 cm linear object in the terminal ileum. Surgery was consulted, who do not suspect object is cause of patient's symptom. May repeat CT in 2 days to ensure passage of object. -NGT suction initiated. If significant decrease in output, will clamp with eventual plans to transition to soft PO diet. (2) Acute dehydration: Impression: -Improving on IV fluids. Continue LR 1000 mls @ 100/hr (3) RUPA (acute kidney injury): Impression: -Improving after fluid replacement. Kidney markers show mild dysfunction but continues to improve. Will monitor (4) Hypertension: Impression: -Continue to hold antihypertensives at this time as patient's blood pressure's have been soft Qualifiers: Hypertension type: unspecified Qualified Code(s): I10 - Essential (primary) hypertension (5) Prediabetes: Impression: -Continue statin. Hold metformin while inpatient.
[2024-09-13] MEDS: HEPARIN 5,000 UNIT/ML VIAL SUBQ SCH (14:12)
--- NOTE | 2024-09-13 18:21 | PROVIDER PROGRESS NOTE ---
Subjective General Admit Date: 09/11/24 Procedure Date: 09/12/24 Post Op Days: 2 Procedure Performed: diagnostic laparoscopy, lysis of adhesions, appendectomy Wound Assessment Wound/Incisions: positive Dressing dry and intact Review of Systems I did not repeat a review of systems today. Exam Exam Vital Signs: Vital Signs x48h Temp Pulse Resp BP Pulse Ox 09/14/24 07:38 36.5 C 76 16 119/40 L 93 General: 74-year old male, appears stated age, well developed, well nourished, evaluated in room 20 [facility] Med[facility] HEENT: Normocephalic, atraumatic, extraocular movement intact, mucous membranes pink and moist, sclera anicteric and not injected Neck: Supple without pain on palpation, mass or bruit Cardiac: Regular rate and rhythm without rub, gallop, or murmur Chest: Clear to auscultation bilaterally Abdomen: Soft, nontender, normoactive bowel sounds, no hepatomegaly, no splenomegaly Genitourinary: Deferred Rectal: Deferred Extremities: No gross neurovascular problem, no clubbing, cyanosis or edema Gait: Not evaluated. Psychiatric: Alert and oriented to person place and time, asks and answers questions appropriately, mood and affect appropriate Impression/Plan Problem List (1) SBO (small bowel obstruction): (2) Acute dehydration: (3) RUPA (acute kidney injury): (4) Hypertension: Qualifiers: Hypertension type: unspecified Qualified Code(s): I10 - Essential (primary) hypertension (5) Prediabetes: Plan Postop day 2 status post exploratory laparoscopy with lysis of adhesions Patient had a CT scan at the behest of nursing after they were concerned about increased abdominal distention overnight. The CT scan did not show any acute process. Patient's nasogastric output has increased a bit and has darkened. Otherwise the patient is passing small amounts of gas. He denies any nausea. He denies abdominal pain. Plan is to continue nasogastric tube until there is better bowel function. That small linear apparently metallic lesion in the either terminal ileum or cecum is not causing a problem and is unlikely to cause a problem. It may be a staple line from her previous appendectomy. At any rate it is no cause for concern. Is soon as there is adequate bowel function returning then I will feed the patient. Pain control does not appear to be an issue at this point. I instructed the patient to increase his mobility and activity as well as ambulation. For surgery CPT 86990-62 (laparoscopic adhesiolysis), 64078 (exploratory laparoscopy) For today's visit [place] [address]-17
[2024-09-14 05:59] LABS: HCT - HEMATOCRIT 38.5 % (42.0-52.0); MEAN CORPUSCULAR HEMOGLOBIN 29.4 pg (27.0-31.0); MEAN CORPUSCULAR HGB CONC 31.2 g/dL (32.0-36.0); MEAN CORPUSCULAR VOLUME 94.4 fL (80.0-94.0); MEAN PLATELET VOLUME 9.4 fL (7.4-11.4); RED BLOOD COUNT 4.08 10^6/uL (4.70-6.10); RED CELL DISTRIBUTION WIDTH 13.7 % (12.0-15.0); WHITE BLOOD COUNT 8.2 x10^3/uL (4.8-10.8)
[2024-09-14 06:16] LABS: CALCIUM 8.5 mg/dL (8.5-10.3); CREATININE 0.8 mg/dL (0.6-1.3); MAGNESIUM 1.7 mg/dL (1.7-2.3); POTASSIUM 3.1 mmol/L (3.5-4.5)
--- NOTE | 2024-09-14 09:45 | PROVIDER PROGRESS NOTE ---
Subjective General Admit Date: 09/11/24 Procedure Date: 09/12/24 Post Op Days: 2 Procedure Performed: diagnostic laparoscopy, lysis of adhesions, appendectomy Other Other Information/Narrative: Patient passing gas as well as some diarrhea. No nausea. Wound Assessment Wound/Incisions: positive Dressing dry and intact Review of Systems I did not repeat a review of systems today. Exam Exam Vital Signs: Vital Signs x48h Temp Pulse Resp BP Pulse Ox 09/14/24 07:38 36.5 C 76 16 119/40 L 93 General: 74-year old male, appears stated age, well developed, well nourished, evaluated in room 2079 [facility] Med[facility] HEENT: Normocephalic, atraumatic, extraocular movement intact, mucous membranes pink and moist, sclera anicteric and not injected, I removed the nasogastric tube Neck: Supple without pain on palpation, mass or bruit Cardiac: Regular rate and rhythm without rub, gallop, or murmur Chest: Clear to auscultation bilaterally Abdomen: Soft, nontender, normoactive bowel sounds, no hepatomegaly, no splenomegaly, 2 incisions with Steri-Strips in place last with a dry dressing in place. Genitourinary: Deferred Rectal: Deferred Extremities: No gross neurovascular problem, no clubbing, cyanosis or edema Gait: Not evaluated. Psychiatric: Alert and oriented to person place and time, asks and answers ques tions appropriately, mood and affect appropriate Impression/Plan Problem List (1) SBO (small bowel obstruction): (2) Acute dehydration: (3) RUPA (acute kidney injury): (4) Hypertension: Qualifiers: Hypertension type: unspecified Qualified Code(s): I10 - Essential (primary) hypertension (5) Prediabetes: Plan Postoperative day 3 following exploratory laparoscopy with laparoscopic a dhesiolysis. The patient is actively passing gas and having some diarrheal bowel movements which is not unexpected following his bowel obstruction. There is no evidence of infection. I removed the nasogastric tube and will start him on clear liquid diet this morning with an advancement to a regular diet by this afternoon. I expect discharge in the next 24 hours if he does well with his oral intake. I will decrease his IV fluids. I have encouraged him to ambulate is much as possible today and take a shower if he so wishes. CPT 36392-39
[2024-09-14] MEDS ORDERED: HYDROcod/ACETAM 5/325 MG TABLET PO PRN (11:45)
[2024-09-14 13:01] VITALS: TEMP 97.5
--- NOTE | 2024-09-14 14:18 | PROVIDER PROGRESS NOTE ---
Subjective Prog Note Date Prog Note Date: 09/14/24 Prog Note Time: 14:16 Subjective Pt reports feeling: Improved Subjective: Patient is sitting up in bed, talking on the phone. Patient states he continues to do well without any ABD pain, N/V. He has had multiple BM and able to pass gas. States he was able to tolerate soft food without problem. Patient is eager to be discharged. Current Medications Current Medications Current Medications: Current Medications Generic Name Dose Route Start Last Admin Trade Name Freq PRN Reason Stop Dose Admin Acetaminophen 650 mg 09/14/24 11:45 Acetaminophen 325 Mg Tablet PO Q4HR PRN Pain 1-3 or Fever > 38C Hydrocodone Bitart/Acetaminophen 1 tab 09/14/24 11:45 Hydrocod/Acetam 5/325 Mg Tablet PO Q4HR PRN Moderate Pain (Level 4-6) Atorvastatin Calcium 80 mg 09/13/24 09:00 09/14/24 08:31 Atorvastatin 40 Mg Tablet PO 80 mg DAILY MARK Administration Heparin Sodium (Porcine) 5,000 unit 09/13/24 14:00 09/14/24 05:57 Heparin 5,000 Unit/Ml Vial SUBQ 5,000 unit TID MARK Administration Hydromorphone HCl 1 mg 09/13/24 05:41 09/13/24 05:50 Hydromorphone 1 Mg/Ml Carpuject IVP 1 mg Q2HR PRN Administration Severe Pain (Level 7-10) Lactated Ringer's 1,000 mls @ 30 mls/hr 09/11/24 17:01 09/14/24 10:18 Lr IV 30 mls/hr .[id number] MARK Infusion Acetaminophen 1,000 mg in 100 mls @ 400 mls/hr 09/13/24 16:00 09/14/24 10:16 Acetaminophen IV 400 mls/hr Q6H MARK Administration Morphine Sulfate 2 mg 09/12/24 21:32 09/13/24 03:41 Morphine 2 Mg/Ml Carpuject IVP 2 mg Q2HR PRN Administration Severe Pain (Level 7-10) Ondansetron HCl 4 mg 09/11/24 17:01 Ondansetron Odt 4 Mg Tablet TL Q6HR PRN Nausea / Vomiting Ondansetron HCl 4 mg 09/11/24 17:01 Ondansetron 4 Mg/2 Ml Vial IVP Q6HR PRN Nausea / Vomiting Phenol/Menthol 2 sprays 09/11/24 20:26 09/11/24 20:58 Phenol Throat [place] 177 Ml MM 2 sprays Q2HR PRN Administration Throat Pain Sodium Chloride 10 ml 09/11/24 17:01 Sodium Chloride Flush 0.9% 10 Ml Syringe IVP PRN PRN NEEDED PER PROVIDER ORDERS Sodium Chloride 10 ml 09/11/24 17:01 09/14/24 08:31 Sodium Chloride Flush 0.9% 10 Ml Syringe IVP Not Given 0100,0900,1700 [facility] Objective Vital Signs/Intake & Output Reviewed Vital Signs: Yes Vital Signs: Vital Signs x48h Temp Pulse Resp BP Pulse Ox 09/14/24 13:00 36.4 C L 78 18 134/57 H 93 09/14/24 07:38 36.5 C 76 16 119/40 L 93 Intake & Output: Intake & Output 09/11/24 09/12/24 09/13/24 09/14/24 23:59 23:59 23:59 23:59 Intake Total 3605 / 3605 4902 / 4902 2350 / 2350 1525 / 1525 Output Total 200 / 200 1650 / 1650 2100 / 2100 500 / 500 Balance 3405 / 3405 3252 / 3252 250 / 250 1025 / 1025 Weight (kg) 126 kg Objective General Appearance: positive No acute distress Eyes Bilateral: positive Normal inspection, PERRL and Conjunctivae nml ENT: positive ENT inspection nml, Pharynx nml and No signs of dehydration Neck: positive Nml inspection, Thyroid nml and No JVD Respiratory: positive Chest non-tender, No respiratory distress and Breath sounds nml Cardiovascular: positive Regular rate & rhythm, No murmur and No gallop Abdomen: positive Non-tender, Nml bowel sounds and No distention; negative Rebound Back: positive Nml inspection; negative CVA tenderness (R) or CVA tenderness (L) Skin: positive Color nml, No rash and Warm Extremities: positive Non-tender, Full ROM and No pedal edema Neurologic/Psychiatric: positive Oriented x3, CN's nml (2-12), Motor nml and Mood/affect nml Lab Results 09/14/24 05:45 09/14/24 05:45 Other Labs: Lab Results x24hrs 09/14/24 Range/Units 05:45 WBC 8.2 (4.8-10.8) x10^3/uL RBC 4.08 L (4.70-6.10) 10^6/uL Hgb 12.0 L (14.0-18.0) g/dL Hct 38.5 L (42.0-52.0) % MCV 94.4 H (80.0-94.0) fL MCH 29.4 (27.0-31.0) pg MCHC 31.2 L (32.0-36.0) g/dL RDW 13.7 (12.0-15.0) % Plt Count 224 (130-450) 10^3/uL MPV 9.4 (7.4-11.4) fL Sodium 140 (135-145) mmol/L Potassium 3.1 L (3.5-4.5) mmol/L Chloride 100 L (101-111) mmol/L Carbon Dioxide 26 (21-32) mmol/L Anion Gap 14.0 H (6-13) BUN 21 H (6-20) mg/dL Creatinine 0.8 (0.6-1.3) mg/dL Estimated GFR (MDRD) 94 (>89) Glucose 82 (74-104) mg/dL Calcium 8.5 (8.5-10.3) mg/dL Magnesium 1.7 (1.7-2.3) mg/dL Diagnostic Imaging Diagnostic Imaging Results: positive Final report reviewed and Other Diagnostic Imaging Comments: EXAM: [id number] CT/ABPEWO ([id number]) PROCEDURE: CT Abdomen/Pelvis WO INDICATIONS: increase NGT output and pain postoperatively TECHNIQUE: A CT scan of the abdomen and pelvis was performed without the use of intravenous contrast. Images were recorded and evaluated at appropriate window settings. Reformats: coronal and sagittal. For radiation dose reduction, the following was used: automated exposure control, adjustment of mA and/or kV according to patient size. COMPARISON: 09/11/2024 FINDINGS: Image quality: Mild motion artifact Lower chest: Reticular changes at the lung bases along with atelectasis again seen. No dense consolidation or pleural effusion. An enteric tube is present, with tip in the gastric body. There are coronary calcifications. Liver: No contour deforming mass. Solid organs not well assessed without IV contrast Gallbladder and biliary system: Unremarkable gallbladder, nondilated biliary tree Pancreas: No ductal dilation Spleen: Nonenlarged Adrenals: No discrete nodules Kidneys: No contour deforming left renal mass. Suspected cysts are present. No hydronephrosis or obstructing calcified stone. Vessels and lymph nodes: No abdominal aortic aneurysm. There are mild areas of excavated plaques again seen in the abdominal aorta. No enlarged lymph nodes by size criteria. Bowel and peritoneum: Decreased small bowel obstruction. Fluid-filled mildly ectatic loops of small bowel are seen throughout the mid and upper abdomen. Colonic diverticulosis. Small amount of fluid is present along the right paracolic gutter. No drainable ascites or abscess. A 1.7 cm linear dense object is seen in the right lower quadrant, possibly within the terminal ileum () Trace pneumoperitoneum. Ingested oral contrast is seen to the level of the ligament of Treitz. Body wall: Anterior abdominal postsurgical changes Pelvis: Bladder is unremarkable. Small focus of air likely from instrumentation. Bones: There are degenerative osseous changes. Sacroiliac ankylosis. IMPRESSION: Decreased bowel dilation from obstruction. Ingested oral contrast is seen to the level of the ligament of Treitz. A 1.7 cm linear object is seen in the terminal ileum (), correlate with operative notes. This could also be ingested. (Reference image ) Trace postoperative pneumoperitoneum. Small amount of right paracolic gutter fluid without drainable fluid collection. Other incidental and nonacute findings above. This study was marked in PACS for communication to ensure receipt of the final report. Reviewed by: Efrem Martínez MD on 09/13/2024 7:47 AM PDT Approved by: Efrem Martínez MD on 09/13/2024 7:47 AM PDT Assessment/Plan Problem List (1) SBO (small bowel obstruction): Impression: -Resolved s/p exploratory laparotomy with adhesiolysis and appendectomy. He has had multiple BMs with passed flatus since onset. -NGT was clamped and eventually removed without problem. Patient has been able to tolerate soft PO diet for lunch and has been cleared by surgery for discharge. If he is able to tolerate soft diet for dinner, he will continue soft diet at home for at least 2 week, until bowels have returned to normal. (2) Acute dehydration: Impression: -Improved on IV fluids. (3) RUPA (acute kidney injury): Impression: -Improved after fluid replacement. Kidney markers have normalized. (4) Hypertension: Impression: -Patient may continue antihypertensives at home as BP has climbed back to his baseline. Qualifiers: Hypertension type: unspecified Qualified Code(s): I10 - Essential (primary) hypertension (5) Prediabetes: Impression: -Continue statin. Continue metformin at home as tolerated as diet goes back to normal.
--- NOTE | 2024-09-14 14:49 | Discharge Summary ---
"Discharge Summary Admit Date: 09/11/24 Discharge Date: 09/14/24 Discharging Provider: Dr. Kodak Baugh Primary Care Provider: Eric Brunson MD Code Status: Attempt Resuscitation Discharge Facility Name: Home DIAGNOSES Admission Diagnoses: Small bowel obstruction Acute dehydration Acute kidney injury Prediabetes Hypertension Discharge Diagnoses with Status of Each Condition: Small bowel obstructionresolved s/p exploratory laparotomy with lysis of adhesions and appendectomy completed on 09/12. NG tube removed this morning. Tolerating diet. Passing gas, having bowel movements. Okay to discharge with close follow-up with surgeon. Acute dehydrationresolved. Acute kidney injuryresolved. Hypertensioncontinue antihypertensives at home. Prediabetescontinue statin, metformin. HPI History of Present Illness: Patient is a 74-year-old male with history of prediabetes, hypertension who presents with worsening abdominal pain, nausea, vomiting. Patient states that on Tuesday, he noticed some abdominal pain. He did feel gas buildup in his stomach, noticed some stomach distention, and then have repeated episodes of emesis. He describes the emesis as his recently digested food. No blood or bile was noted. This continued until today, when he decided to come in. He does not recall his last bowel movement. He is not passing gas at this time. He states his last colonoscopy was maybe 2 to 3 years ago, and he was told that it was normal. He has not had any abdominal surgeries. He is not on any opioid medications. Nor has he had any changes to his medications. In the ED, he was slightly hypotensive with blood pressure of 70/50, which improved with IV fluids. His oxygen saturation was 88% on room air. His respiratory rate was 20. His heart rate was 101. And he was afebrile at 96.8. Lab work was reviewedhe had a slightly elevated white blood cell count of 11.5. His potassium was mildly low at 3.4. His creatinine was elevated 2.8, there is no baseline in our system. His UA showed some protein. CT abdomen/pelvis was completedand it did show small bowel obstruction with transition point in lower midline abdomen. Colonic diverticula. Also showed right lung base mild opacities, some emphysema. He was admitted for small bowel obstruction. Emergency room did speak with general surgery as well, they are aware of the admission. CONSULTS | PROCEDURES Consultations: General surgery Procedures: Abdomen/pelvis CT, abdominal x-ray HOSPITAL COURSE Hospital Course: Patient is a 74-year-old male with a history of prediabetes, hypertension who presented with abdominal pain, intractable nausea and vomiting. CT scan showed small bowel obstruction. Patient was taken for exploratory laparotomy the next day, and there was adhesions that were lysed, and an appendectomy that was performed. He had an NG tube in place, which was removed. He is tolerating his diet well. He is passing gas, having bowel movements. He is deemed stable for discharge home with close follow-up with surgery and his primary care provider. He also had an acute kidney injury, and was severely dehydrated on admission, which resolved with IV fluid resuscitation. ALLERGIES Allergies Allergy/AdvReac Type Severity Reaction Status Date / Time No Known Drug Allergies Allergy Unverified 09/11/24 12:55 MEDICATIONS Ambulatory Orders Medication Instructions Recorded Confirmed aspirin 81 mg tablet,delayed 81 mg ORAL DAILY 11/14/13 09/11/24 release (Aspir-) amlodipine 10 mg tablet 10 mg PO DAILY 09/11/2408/24 0 atorvastatin 80 mg tablet (Lipitor) 80 mg PO DAILY 09/11/24 celecoxib 100 mg capsule 100 mg PO BID PRN pain 09/1109/12/24 cetirizine 10 mg tablet 10 mg PO DAILY 09/11/24/ 1/25 chlorthalidone 50 mg tablet 50 mg PO DAILY 09/11/24 glucosamine sulfate 500 mg tablet 2,000 mg PO DAILY 09/11/24 (Glucosamine) losartan 100 mg tablet 100 mg PO DAILY 09/11/24 metformin 500 mg tablet,extended 500 mg PO DAILY 09/1109/11/24 release 24 hr (Glucophage XR) timolol maleate 0.5 % eye gel 1 drp ophthalmic (eye) Q 48H 09/11/24 09/12/24 forming solution difluprednate 0.05 % eye drops 1 drp ophthalmic (eye) Q48H 09/12/24 09/12/24 PHYSICAL EXAM AT DISCHARGE Vital Signs: Vital Signs x48h Temp Pulse Resp BP Pulse Ox 09/14/24 15:42 97.5 F L 94 18 139/77 H 99 09/14/24 13:00 97.5 F L 78 18 134/57 H 93 General Appearance: positive No acute distress and Alert; negative Anxious Eyes Bilateral: positive Normal inspection, PERRL and EOMI ENT: positive ENT inspection nml, Pharynx nml and No signs of dehydration Neck: positive Nml inspection, Thyroid nml, No JVD and Trachea midline Respiratory: positive Chest non-tender and No respiratory distress; negative Wheezes, Rales or Rhonchi Cardiovascular: positive Regular rate & rhythm, No murmur and No gallop Peripheral Pulses: positive 2+ Abdomen: positive Non-tender, No organomegaly, Nml bowel sounds, No distention and Other (surgical scars intact, dry, no bleeding noted) Back: positive Nml inspection; negative CVA tenderness (R) or CVA tenderness (L) Skin: positive Color nml, No rash, Warm and Dry Extremities: positive Non-tender, Full ROM, Nml appearance and No pedal edema Neurologic/Psychiatric: positive Oriented x3, Motor nml and Mood/affect nml LABS 09/14/24 05:45 09/14/24 05:45 DIAGNOSTIC IMAGING Diagnostic Imaging Results: Final report reviewed FOLLOW UP Follow Up: Follow up with surgeon. Follow up with PCP. TIME SPENT Time Spent in Discharge (Minutes): 35 Discharge Plan Discharge Patient Disposition: Home, Self Care Condition: Stable Prescriptions: Continued aspirin [Aspir-81] 81 MG tablet,delayed release (DR/EC) 81 mg ORAL DAILY glucosamine sulfate [Glucosamine] 500 mg tablet 2,000 mg PO DAILY Rx Instructions: administer with a meal atorvastatin [Lipitor] 80 mg tablet 80 mg PO DAILY metformin [Glucophage XR] 500 mg tablet extended release 24 hr 500 mg PO DAILY chlorthalidone 50 mg tablet 50 mg PO DAILY amlodipine 10 mg tablet 10 mg PO DAILY cetirizine 10 mg tablet 10 mg PO DAILY celecoxib 100 mg capsule 100 mg PO BID PRN (Reason: pain) timolol maleate 0.5 % gel forming solution 1 drp ophthalmic (eye) Q48H Rx Instructions: LEFT EYE losartan 100 mg tablet 100 mg PO DAILY difluprednate 0.05 % drops 1 drp ophthalmic (eye) Q48H Rx Instructions: LEFT EYE Activity Restrictions: Activity as Tolerated Diet: Soft Health Concerns: Marlin came in because you are having abdominal pain, nausea, vomiting. You were found to have an obstruction of your small bowels. You underwent surgery to explore the cause of the small bowel obstruction, and multiple adhesions were noted. You also had your appendix removed. Your bowels have slowly started to return function. You are eating and drinking well. Please continue a soft diet at home until you feel 100% better. Please take Tylenol as needed for the pain at home. I have listed follow-up information for the surgeon. Please also follow-up with your primary care provider in the outpatient setting. We are glad you are feeling better, thanks for allowing us to take care of you. Print Language: Nepali Patient Instructions: Surgery Anesthesia After, Diet Soft Dc Stand Alone Forms: PCP List Follow-up Care: ERIC BRUNSON MD [Primary Care Provider] - Alejandra Morris DO [Provider Admit Priv/Credential] - 2 Weeks"
[2024-09-14 15:44] VITALS: O2SAT 99
[2024-09-14 15:46] VITALS: BP 139/77
[2024-09-14] MEDS: ACETAMINOPHEN 325 MG TABLET PO PRN (17:41)
== END 2024-09-14 18:30 | disposition home or self-care (01) | DRG 336 ==
LOC: ED 12:59 → MS2 15:16
PROVIDERS: ADMIT Internal Medicine; ATTEND Internal Medicine